=== PATIENT | female | born 1975 | race Caucasian/White ===

== ENCOUNTER 2020-07-10 08:13 | Day surgery (SDC) | payer OTHER ==
[~2020-07-10] VITALS: Ht 175.3 cm; Wt 129.7 kg
[~2020-07-10 08:13] MED LIST: CELEBREX100 MG PO; GLUCOPHAGE1000 MG PO; OMEPRAZOLE20 MG PO; PRAVACHOL40 MG PO
[2020-07-10] MEDS ORDERED: VICTOZA 2-0.6 MG/0.1 SUB-Q (08:31)
[2020-07-10] MEDS ORDERED: OB COMPLETE WI1 EACH PO (08:32)
--- NOTE | 2020-07-10 10:40 | NUR ---
07/10/20 1040 Rashmi Begum 1034-PATIENT ARRIVED TO PACU ON 2L NC AWAKE DROWSY RR EVEN LAYING LEFT LATERAL. ABDOMEN SOFT. ENCOURAGED TO PASS GAS. IVF INFUSING. HOB ELEVATED. DENIES PAIN OR NAUSEA. DOZES BACK TO SLEEP. 1039-GLUCOSE CHECKED 128. PATIENT SLEEPING 2L NC RR EVEN
--- NOTE | 2020-07-10 18:33 | OR ---
[facility] [address] [place], [place] [address] Signed DATE OF OPERATION: 07/10/2020 SURGEON: Julito Paz MD PREOPERATIVE DIAGNOSES: 1. Gastroesophageal reflux disease. 2. Hiatal hernia. 3. Possible gastric ulcer. 4. Intermittent diarrhea. 5. Mother with colonic polyps in her 50s. 6. Maternal aunt with colon cancer in her 50s. 7. Maternal great grandmother with colon cancer in her late 60s. POSTOPERATIVE DIAGNOSES: 1. Hiatal hernia/patulous GE junction (38 cm). 2. Sigmoid diverticulum x1. PROCEDURES: 1. EGD with CLOtest and biopsies of the duodenum, antrum and GE junction. 2. Colonoscopy with random cold biopsies. ESTIMATED BLOOD LOSS: None. INDICATIONS: Devora is a 45-year-old obese diabetic female, who was asked to see me for upper and lower endoscopy. She has a family history of colon cancer and polyps as listed above. In addition, she has had some trouble with acid reflux clear back to when she was a teenager. She also mentioned intermittent diarrhea. Her recent upper GI showed what is probably a tiny hiatal hernia with acid reflux and then may be an ulcer as well. The ulcer seemed to be quite small. She was changed from Zantac to Prilosec and it really made no difference. As a result, she was asked to see me for both upper and lower endoscopy. I met with Devora in the office. I gave her pamphlets on both upper and lower endoscopy. She understands the nature of the two tests along with the risks including, but not limited to gas, bloating, crampy abdominal pain, bleeding, perforation requiring surgery, and missed diagnosis. She also understands the need for IV conscious sedation. She had expressed understanding and wished to proceed. PROCEDURE NOTE: Devora was taken into our endoscopy suite and placed in the supine semi-recumbent Electronically Signed By: JULITO PAZ MD 07/10/20 1833 PATIENT NAME: DEVORA DOUGLAS OPERATIVE REPORT DATE OF : 71 REPORT #: [id number] PHYSICIAN: JULITO PAZ MD PCP: REGINA SERRANO MD REPORT IS CONFIDENTIAL AND NOT TO BE RELEASED WITHOUT AUTHORIZATION [facility] [address] [place], [place] [address] Signed position. The posterior oropharynx was anesthetized with lidocaine spray. A bite block was utilized for the case. She took a total of 11 mg of Versed and 125 mcg of fentanyl to cover both cases. The adult gastroscope had been introduced and advanced under direct visualization of camera out into the third portion of the duodenum without difficulty. The duodenum appeared in the pyloric channel. Healthy. We took a biopsy out of the duodenum because of the history of intermittent diarrhea. We looked and saw no ulcerations in the pyloric bulb or the stomach itself. We did take a biopsy of the antrum for CLOtest as well as pathologic review. Upon retroflexion of the scope, she has more or less a patulous GE junction. Not a true hiatal hernia. We withdrew the scope back through the area of GE junction, which was compliant without stricture. There was no gastric or esophageal varices. Just very minimal disruption to the Z-line. We took a biopsy along the edge of the Z-line for pathologic review. The GE junction measured out about 38 cm which is appropriate given Devora's height and weight. The distal middle and upper esophagus were unremarkable. After this, the gas was suctioned out and gastroscope removed. Devora tolerated the procedure quite well. Devora was rotated into the left lateral decubitus position. She was maintained on IV sedation with Versed and fentanyl. A digital rectal exam was performed and this was unremarkable. The adult colonoscope was introduced and advanced under direct visualization of the camera. It took a little extra sedation and abdominal compression in order to remove the scope up into the cecum. She had just a bit of liquid bilious stool. I could not quite suction irrigate out completely, right behind the ileocecal valve. Otherwise no findings. Her prep had a few areas of liquid particulate stool matter which was irrigated and suctioned out. The scope was then slowly withdrawn. We saw just a single diverticulum in her sigmoid colon. It was moderate in diameter and a bit shallow. We saw no inflammatory changes throughout the entire colon. We did take several random colon biopsies because of the history of diarrhea. The rectum itself was unremarkable. Upon retroflexion of the scope, there was no additional pathology noted above the anal canal. After this, the gas was suctioned out and the colonoscope removed. Devora tolerated the procedure quite well. RECOMMENDATIONS: I will see Devora back in my office in 7 to 14 days to review her results. Because of her family history, she will need a colonoscopy every 5 years. Julito Paz MD ALB/MODL Electronically Signed By: JULITO PAZ MD 07/10/20 1833 PATIENT NAME: DEVORA DOUGLAS OPERATIVE REPORT DATE OF : 71 REPORT #: [id number] PHYSICIAN: JULITO PAZ MD PCP: REGINA SERRANO MD REPORT IS CONFIDENTIAL AND NOT TO BE RELEASED WITHOUT AUTHORIZATION [address] [place] [address] Signed /[id number] cc: Regina Serrano MD Copies: ~ Electronically Signed By: JULITO PAZ MD 07/10/20 1833 PATIENT NAME: DEVORA DOUGLAS OPERATIVE REPORT DATE OF : 71 REPORT #: [id number] PHYSICIAN: JULITO PAZ MD PCP: REGINA SERRANO MD REPORT IS CONFIDENTIAL AND NOT TO BE RELEASED WITHOUT AUTHORIZATION
--- NOTE | 2020-07-11 10:47 | PATH ---
[facility] [address] [place], [place] [address] Signed SPECIMEN(S): A DUODENUM SPECIMEN(S): B ANTRUM/PYLORUS SPECIMEN(S): C GE JUNCTION SPECIMEN(S): D COLON BIOPSY SPECIMEN SOURCE: A. DUODENUM B. ANTRUM/PYLORUS C. GE JUNCTION D. COLON BIOPSY CLINICAL HISTORY: GERD, diarrhea. Esophagogastroduodenoscopy, colonoscopy. MICROSCOPIC DESCRIPTION: Histologic sections of all submitted blocks are examined by light microscopy. These findings, together with the gross examination, support the pathologic diagnosis. FINAL PATHOLOGIC DIAGNOSIS: A. Duodenum, biopsy: - Duodenal mucosa with no histopathologic abnormality. - Negative for increased intraepithelial lymphocytes. - Negative for dysplasia or malignancy. B. Stomach, antrum/pylorus, biopsy: - Antral mucosa with reactive gastropathy. - Negative for Helicobacter organisms on HE stain. - Negative for dysplasia or malignancy. C. Gastroesophageal junction, biopsy: - Squamocolumnar junctional mucosa with minimal chronic inflammation and reactive changes, suggestive of mild reflux esophagitis. - Negative for intestinal metaplasia, dysplasia, or malignancy. D. Colon, biopsy: - Fragments of colonic mucosa with no histopathologic abnormality. - Negative for active, chronic, or microscopic colitis. - Negative for dysplasia or malignancy. NAL:cml:C2NR GROSS DESCRIPTION: Four specimens are received in four containers, labeled "SB." A. The specimen, labeled "SB," and designated on the requisition "duodenum biopsy," is received in formalin and consists of one fragment of pink-alonso PATIENT NAME: MIGUELITO DOUGLAS PATHOLOGY DATE OF : 71 REPORT #: [id number] PHYSICIAN: MARCELINO PATHOLOGY PCP: PAUL SERRANO MD REPORT IS CONFIDENTIAL AND NOT TO BE RELEASED WITHOUT AUTHORIZATION [facility] [address] [place], [place] [address] Signed tissue (0.3 x 0.2 x 0.2 cm). The specimen is submitted entirely in cassette (A1). B. The specimen, labeled "SB," and designated on the requisition "antrum/pylorus biopsy," is received in formalin and consists of one fragment pink-alonso tissue (0.3 x 0.2 x 0.2 cm). The specimen is submitted entirely in cassette (B1). C. The specimen, labeled "SB," and designated on the requisition "GE junction biopsy," is received in formalin and consists of one fragment of white-alonso tissue (0.4 x 0.3 x 0.3 cm). The specimen is submitted entirely in cassette (C1) D. The specimen, labeled "SB," and designated on the requisition "colon biopsy," is received in formalin and consists of three fragments of pink-alonso tissue (0.7 x 0.4 x 0.3 cm in aggregate). The specimen is submitted entirely in cassette (D1). AC (under the direct supervision of a pathologist) The Gross Description was prepared using a voice recognition system. The report was reviewed for accuracy; however, sound-alike word errors, addition and/or deletions may occur. If there is any question about this report, please contact Client Services. PERFORMING LABORATORY: The technical component was performed by [employer], [address] [place] [address] (Paradichlorobenzene Machine Operator: Samantha Nam MD; CLIA# [id number]). Professional interpretation was performed by [employer], [facility], [address] [address] (CLIA# [id number]). Diagnostician: Emma Nowak MD Pathologist Electronically Signed 07/11/2020 Copies: ~ PATIENT NAME: MIGUELITO DOUGLAS PATHOLOGY DATE OF : 71 REPORT #: [id number] PHYSICIAN: MARCELINO PATHOLOGY PCP: PAUL SERRANO MD REPORT IS CONFIDENTIAL AND NOT TO BE RELEASED WITHOUT AUTHORIZATION
== END 2020-07-10 11:30 | disposition home or self-care (01) ==
LOC: OPS 08:13 → DS 08:13 → OPS 09:45
PROVIDERS: Colon & Rectal Surgery
PROC: 0DB48ZX Excision of Esophagogastric Junction, Via Natural or Artificial Opening Endoscopic, Diagnostic (ICD-10-PCS; 2020-07-10)
PROC: 0DBE8ZX Excision of Large Intestine, Via Natural or Artificial Opening Endoscopic, Diagnostic (ICD-10-PCS; 2020-07-10)
PROC: 0DB98ZX Excision of Duodenum, Via Natural or Artificial Opening Endoscopic, Diagnostic (ICD-10-PCS; principal; 2020-07-10 09:45)
PROC: 0DB78ZX Excision of Stomach, Pylorus, Via Natural or Artificial Opening Endoscopic, Diagnostic (ICD-10-PCS; 2020-07-10 09:45)
DX: K57.30 Diverticulosis of large intestine without perforation or abscess without bleeding (principal); K20.9 Esophagitis, unspecified; K44.9 Diaphragmatic hernia without obstruction or gangrene; K21.9 Gastro-esophageal reflux disease without esophagitis; E11.9 Type 2 diabetes mellitus without complications; Z80.0 Family history of malignant neoplasm of digestive organs; Z83.71 Family history of colonic polyps; Z79.899 Other long term (current) drug therapy; Z88.8 Allergy status to other drugs, medicaments and biological substances; Z88.0 Allergy status to penicillin; Z88.2 Allergy status to sulfonamides
CPT/HCPCS: 84703; 86677; 99153; G0500; J2250; J3010; J7121

== ENCOUNTER 2020-09-11 11:12 | Emergency (ER) | payer OTHER ==
[~2020-09-11] VITALS: Ht 175.3 cm; Wt 129.7 kg
--- OUTSIDE RECORDS SUMMARY | ~2020-09-11 | XMS | Encounter Summary ---
Demographics + + + | Address | [address] | | | [place] [address] | + + + | Home Phone | | + + + | Preferred Language | Unknown | + + + | Marital Status | | + + + | Jew Affiliation | NON | + + + | Race | White | + + + | Ethnic Group | Not or | + + + Author + + + | Author | [facility] | + + + | Organization | [facility] | + + + | Address | Unknown | + + + | Phone | Unavailable | + + + Support + + + + + | Name | Relationship | Address | Phone | + + + + + | Tori Braxton | ECON | [address] | | | [place] | | [place] [address] | | + + + + + | Nikole Partida | ECON | [address] | | | | | [place] | | | | | [address] | | + + + + + Care Team Providers + +------+ + | Care Plush Dresser Name | Role | Phone | + +------+ + | Vinny Lorenzana PA-C | PCP | | + +------+ + Encounter Details +--------+ + + + + | Date | Type | Department | Care Team | Description | +--------+ + + + + | 08/09/ | Document-Sc | [facility] | Madi Kessler MD | | | 2018 | anned | Sports Medicine & | 7 [facility] | | | | | Orthopaedic Surgery | Reginaldo JAME[place]HEL[place], | | | | | [address] | [place] [address] | | | | | [place], [place] | [phone] | | | | | [address] | | | | | | [phone] | | | +--------+ + + + + Social History + +-------+ +--------+------+ | Tobacco Use | Types | Packs/Day | Years | Date | | | | | Used | | + +-------+ +--------+------+ | Never Smoker | | | | | + +-------+ +--------+------+ + +---+---+---+ | Smokeless Tobacco: | | | | | Never Used | | | | + +---+---+---+ + + + | Sex Assigned at | Date Recorded | | | | + + + | Not on file | | + + + documented as of this encounter Plan of Treatment Not on filedocumented as of this encounter Visit Diagnoses Not on filedocumented in this encounter"
--- OUTSIDE RECORDS SUMMARY | ~2020-09-11 | XMS | Encounter Summary ---
Demographics + + + | Address | [address] | | | [place] [address] | + + + | Home Phone | | + + + | Preferred Language | Unknown | + + + | Marital Status | | + + + | Holiness Affiliation | NON | + + + | Race | White | + + + | Ethnic Group | Not or | + + + Author + + + | Author | [facility] | + + + | Organization | [facility] | + + + | Address | Unknown | + + + | Phone | Unavailable | + + + Support + + + + + | Name | Relationship | Address | Phone | + + + + + | Tori Braxton | ECON | [address] | | | [place] | | [place] [address] | | + + + + + | Nikole Partida | ECON | [address] | | | | | [place] | | | | | [address] | | + + + + + Care Team Providers + +------+ + | Care Volunteer Fire Fighter Name | Role | Phone | + +------+ + | Vinny Lorenzana PA-C | PCP | | + +------+ + Reason for Visit + + + | Reason | Comments | + + + | Trigger Thumb | left thumb | + + + Consultation (Routine) + +--------+ + + + + | Status | Reason | Specialty | Diagnoses / | Referred By | Referred To | | | | | Procedures | Contact | Contact | + +--------+ + + + + | Authorized | | Orthopedics | Diagnoses | [place], | [place], | | | | | Trigger | Vinny Rendon, | Ramu Padilla MD 7 | | | | | thumb, left | PA-C [address] | | | | | thumb | [address] | Drive | | | | | | [place], | [place], | | | | | | [place] [address] | [place] [address] | | | | | | Phone: | Phone: | | | | | | [phone] | [phone] | | | | | | Fax: | Fax: | | | | | | [phone] | [phone] | + +--------+ + + + + Encounter Details +--------+---------+ + + + | Date | Type | Department | Care Team | Description | +--------+---------+ + + + | 05/10/ | Office | [facility] | Ramu Alegria MD | Trigger thumb of | | 2018 | Visit | Sports Medicine & | [address] [place] | left hand (Primary | | | | Orthopaedic Surgery | Drive [place], | Dx) | | | | [address] | [place] [address] | | | | | [place], [place] | [phone] | | | | | [address] | | | | | | [phone] | | | +--------+---------+ + + + Social History + +-------+ [...] + + documented as of this encounter Patient Instructions Patient Instructions Kirill Weaver - 05/10/2018 4:15 PM PDTMonitor symptoms Follow up as needed for recurrent symptomsElectronically signed by Kirill Weaver at 04/30 4:36 PM PDT documented in this encounter Progress Notes Ramu Alegria MD - 05/10/2018 4:15 PM PDT Chief Complaint: Left hand pain HPI: Devora [place] is a 42 y.o. Diabetic female from [facility] who presents to the office today for evaluation of left hand trigger thumb. She reports pain at the volar base of the left t humb. The patient reports locking and catching in her left thumb. She has had symptoms for s mor November 2016. She was treated with an additional injection in November. She had good r elief for symptoms for nearly 5 months. Her symptoms return. She was given repeat cortison e injection on 04/28/18. She reports good improvement in her catching and locking symptoms f ollowing the injection. She has some mild pain over the A1 janak region of her left thumb. Overall she is much better and has minimal symptoms. Due to reoccurring symptoms he is refe rred office for orthopedic follow-up discuss long-term treatment. She is referred to the office today for orthopedic evaluation by Vinny Lorenzana. Current pain is 1/10 and is characterized as dull, stabbing, aching and intermittent. Symp toms are improving. The pain does not wake the patient at night. It is associated with swe lling. 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 She is using no medications for the pain. Past Medical and Surgical History: Reviewed per patient intake form. Past Medical History: Diagnosis Date Diabetes mellitus (HCC) High cholesterol History reviewed. No pertinent past surgical history. Current Outpatient Prescriptions Medication atorvastatin 5 mg oral tablet insulin glargine 100 unit/mL subcutaneous solution metFORMIN 1,000 mg oral tablet No current facility-administered medications for this visit. Allergies Allergen Reactions Cephalexin Hives Penicillin Hives Sulfa (Sulfonamide Antibiotics) Hives Family History Problem Relation Cancer Other Heart Disease Other Social history: Occupation: No occupation listed. She reports that she has never smoked. She has never used smokeless tobacco. She has no alcohol history on file. She has no drug history on file. Review of Systems: Completed and reviewed with patient per patient intake form. Pertinent positives noted in HPI. See scanned document in media section for reference. No general, systemic or constitu tional issues. Denies chest pain or shortness of breath. Denies fever or chills. No skin a brasions / lesions except as noted. Physical Exam: There were no vitals taken for this visit. General/Constitutional: Well developed, well nourished female, alert and oriented, and in no acute distress. Left hand Inspection: No swelling, no deformity. Palpation: Minimal tenderness on palpation over A1 janak, no palpable triggering Range of motion: Full range of motion Strength: Normal Stability: Normal Contralateral hand Inspection: No swelling. Palpation: Mild nodule A1 janak thumb Range of motion: Full range of motion. Strength: Normal strength. Assessment: Left hand trigger thumb Diabetes mellitus Plan: The patient's clinical history and physical exam are consistent with left hand trigger giselle turcios. I reviewed the natural history of this disorder with the patient and have outlined yamini tment options. Her symptoms have improved following her recent cortisone injection. She ma y continue activities as tolerated. Trigger fingers her common in diabetics. If she contin ues have recurrent symptoms will recommend a trigger thumb release. I will see her back in the office as needed for recurrent symptoms. Follow up: reginald Alegria MD [facility] Clinical Change Booth Attendant Board Certified Orthopaedic Surgeon Fellowship Trained in Sports Medicine and Arthroscopic Surgery Specializing in Knee and Shoulder Surgery [facility] [address] [place] [address] [place] [address] Office: [phone] [email or web address] documented in this enc ounter Plan of Treatment Not on filedocumented as of this encounter Procedures + +--------+ + + + | Procedure Name | Priori | Date/Time | Associated Diagnosis | Comments | | | ty | | | | + +--------+ + + + | X-RAY HAND 3 VIEWS | Routin | 05/10/2018 | Trigger thumb of | Results for this | | LEFT | e | 4:06 PM | left hand | procedure are in the | | | | PDT | | results section. | + +--------+ + + + documented in this encounter Results X-RAY HAND 3 VIEWS LEFT (05/10/2018 4:06 PM PDT) + + | Specimen | + + | | + + + + + | Narrative | Performed At | + + + | [address] [place] [address] | [facility] | | [place] [address] | DEPARTMENT | | [phone] Name: DEVORA DOUGLAS Phys: | RADIOLOGY | | RAMU ALEGRIA : 1975 Sex: F CSN: | | | [id number] MR# [id number] Exam Date: 05/10/2018 | | | EXAM: X-RAY HAND 3 VIEWS LEFT [id number] CLINICAL HISTORY: Left | | | hand pain. COMPARISON: None available. TECHNIQUE: Frontal, | | | lateral, and oblique views. FINDINGS: Bones: No acute fracture | | | or destructive osseous lesion. Bone mineralization is normal. | | | Joints: No acute dislocation. No significant degenerative changes. | | | Soft tissues: No radiopaque foreign body or soft tissue | | | calcification. IMPRESSION: No acute osseous process. | | | REPORT SIGNED IN OTHER VENDOR SYSTEM 05/10/2018 Reported by: | | | Christiano Beasley MD Electronically signed by: Christiano Beasley MD | | | Transcribed Date/Time: 05/10/2018 16:20 Wood Floor Refinisher: FLUENCY | | | | | + + + + + | Procedure Note | + + | Interface, Radiology Results - 05/10/2018 4:24 PM PDT [address] | | [address] [place] [address] | | Name: DEVORA DOUGLAS Phys: RAMU ALEGRIA : 1975 Sex: F | | CSN: [id number] MR# [id number] Exam Date: 05/10/2018 EXAM:X-RAY HAND 3 VIEWS | | LEFT [id number] CLINICAL HISTORY:Left hand pain. COMPARISON:None available. | | TECHNIQUE:Frontal, lateral, and oblique views. FINDINGS:Bones: No acute fracture or | | destructive osseous lesion. Bonemineralization is normal. Joints: No acute | | dislocation. No significant degenerative changes. Soft tissues: No radiopaque foreign | | body or soft tissuecalcification. IMPRESSION:No acute osseous process. REPORT SIGNED | | IN OTHER VENDOR SYSTEM 05/10/2018 Reported by: Christiano Beasley MD Electronically signed | | by: Christiano Beasley MD Transcribed Date/Time: 05/10/2018 16:20Transcriptionist: FLUENCY | | | |EXAM: | |X-RAY HAND 3 VIEWS LEFT [id number] | | | |CLINICAL HISTORY: | |Left hand pain. | | | |COMPARISON: | |None available. | | | |TECHNIQUE: | |Frontal, lateral, and oblique views. | | | |FINDINGS: | |Bones: No acute fracture or destructive osseous lesion. Bone | |mineralization is normal. | | | |Joints: No acute dislocation. No significant degenerative changes. | | | |Soft tissues: No radiopaque foreign body or soft tissue | |calcification. | | | |IMPRESSION: | |No acute osseous process. | | | | | | REPORT SIGNED IN OTHER VENDOR SYSTEM 05/10/2018 | |Reported by: Christiano Beasley MD | | | |Electronically signed by: Christiano Beasley MD | | | |Transcribed Date/Time: 05/10/2018 16:20 | |Wood Floor Refinisher: FLUENCY | | | | | | | + + + +---------+ + + | Performing | Address | City/State/Zipcode | Phone Number | | Organization | | | | + +---------+ + + | [facility] | | | | | [facility]IOLOGY | | | | + +---------+ + + documented in this encounter Visit Diagnoses + + | Diagnosis | + + | Trigger thumb of left hand - Primary Trigger finger (acquired) | + + documented in this encounter"
--- OUTSIDE RECORDS SUMMARY | ~2020-09-11 | XMS | Encounter Summary ---
Demographics + + + | Address | [address] | | | [place] [address] | + + + | Home Phone | | + + + | Preferred Language | Unknown | + + + | Marital Status | | + + + | Cheondoism Affiliation | NON | + + + | Race | White | + + + | Ethnic Group | Not or | + + + Author + + + | Author | [facility] | + + + | Organization | [facility] | + + + | Address | Unknown | + + + | Phone | Unavailable | + + + Support + + + + + | Name | Relationship | Address | Phone | + + + + + | Tori Braxton | ECON | [address] | | | [place] | | [place] [address] | | + + + + + | Nikole Partida | ECON | [address] | | | | | [place] | | | | | [address] | | + + + + + Care Team Providers + +------+ + | Care Inspector Watch Assembly Name | Role | Phone | + +------+ + | Vinny Lorenzana PA-C | PCP | | + +------+ + Encounter Details +--------+ + + + + | Date | Type | Department | Care Team | Description | +--------+ + + + + | 10/06/ | Procedure | [facility] | | | | 2017 | Pass | [facility] [address] | | | | | | [place], [place] | | | | | | [address] | | | +--------+ + + + [...] | | | + +---+---+---+ + + +---------+ + | Alcohol Use | Drinks/Week | oz/Week | Comments | + + +---------+ + | Yes | | | very rarely, 1-2 x | | | | | per year,. | + + +---------+ + + + + | Sex Assigned at | Date Recorded | | | | + + + | Not on file | | + + + documented as of this encounter Plan of Treatment Not on filedocumented as of this encounter Visit Diagnoses Not on filedocumented in this encounter"
--- OUTSIDE RECORDS SUMMARY | ~2020-09-11 | XMS | Encounter Summary ---
Demographics + + + | Address | [address] | | | [place] [address] | + + + | Home Phone | | + + + | Preferred Language | Unknown | + + + | Marital Status | | + + + | Hinduism Affiliation | NON | + + + | Race | White | + + + | Ethnic Group | Not or | + + + Author + + + | Author | [facility] | + + + | Organization | [facility] | + + + | Address | Unknown | + + + | Phone | Unavailable | + + + Support + + + + + | Name | Relationship | Address | Phone | + + + + + | Tori Braxton | ECON | [address] | | | [place] | | [place] [address] | | + + + + + | Nikole Partida | ECON | [address] | | | | | [place] | | | | | [address] | | + + + + + Care Team Providers + +------+ + | Care Gaming Manager Name | Role | Phone | + +------+ + | Vinny Lorenzana PA-C | PCP | | + +------+ + Reason for Visit +---------+--------+ + | Reason | Onset | Comments | | | Date | | +---------+--------+ + | Surgery | 08/24/ | Surgery Confirmation 08/25/18 [facility] | | | 2017 | | +---------+--------+ + Encounter Details +--------+ + + + + | Date | Type | Department | Care Team | Description | +--------+ + + + + | 08/24/ | Telephone | [facility] | Madi Kessler MD | Surgery (Surgery | | 2018 | | Sports Medicine & | [address] | Confirmation 08/25/18 | | | | Orthopaedic Surgery | Reginaldo KLEIN, | [facility] ) | | | | [address] | [place] [address] | | | | | [place] | [phone] | | | | | [address] | | | | | | [phone] | | | +--------+ + + + [...] + + documented as of this encounter Miscellaneous Notes Telephone Encounter - Lisset Luis - 08/24/2018 3:00 PM PDTConfirmed surgery for 6 :15am on 08/25/18. Also reminded patient to stop at the lab prior to heading [facility] to [facility]. elephone Enc deni - Lisset Luis - 08/24/2018 2:01 PM PDTLVM for patient to call me back cora arrieta her check in time for tomorrows surgery with . Confirm surgery check in for 6:15am on 08/25/18. Reminded NPO after midnight prior to surger y. documented in this e ncounter Plan of Treatment Not on filedocumented as of this encounter Visit Diagnoses Not on filedocumented in this encounter"
--- OUTSIDE RECORDS SUMMARY | ~2020-09-11 | XMS | Encounter Summary ---
Demographics + + + | Address | [address] | | | [place] [address] | + + + | Home Phone | | + + + | Preferred Language | Unknown | + + + | Marital Status | | + + + | Moravian Affiliation | NON | + + + | Race | White | + + + | Ethnic Group | Not or | + + + Author + + + | Author | [facility] | + + + | Organization | [facility] | + + + | Address | Unknown | + + + | Phone | Unavailable | + + + Support + + + + + | Name | Relationship | Address | Phone | + + + + + | Tori Braxton | ECON | [address] | | | [place] | | [place] [address] | | + + + + + | Nikole Partida | ECON | [address] | | | | | [place] | | | | | [address] | | + + + + + Care Team Providers + +------+ + | Care Concierge Name | Role | Phone | + +------+ + | Vinny Lorenzana PA-C | PCP | | + +------+ + Reason for Visit +---------+ + | Reason | Comments | +---------+ + | Post Op | TFR, right thumb | +---------+ + Encounter Details +--------+---------+ + + + | Date | Type | Department | Care Team | Description | +--------+---------+ + + + | 09/07/ | Office | [facility] | Princess Kellogg, | Trigger thumb of | | 2018 | Visit | Sports Medicine & | [facility] [address] | left hand (Primary | | | | Orthopaedic Surgery | [place] | Dx); Surgery | | | | [address] | [address] | follow-up; Trigger | | | | [place] | [phone] | thumb of right hand | | | | [address] | | | | | | [phone] | | | +--------+---------+ + + + [...] + + documented as of this encounter Last Filed Vital Signs + + + + + | Vital Sign | Reading | Time Taken | Comments | + + + + + | Blood Pressure | 118/82 | 09/07/2018 1:55 PM | | | | | PDT | | + + + + + | Pulse | 103 | 09/07/2018 1:55 PM | | | | | PDT | | + + + + + | Temperature | - | - | | + + + + + | Respiratory Rate | - | - | | + + + + + | Oxygen Saturation | 97% | 09/07/2018 1:55 PM | | | | | PDT | | + + + + + | Inhaled Oxygen | - | - | | | Concentration | | | | + + + + + | Weight | 123.4 kg (272 lb) | 09/07/2018 1:55 PM | | | | | PDT | | + + + + + | Height | 175.3 cm (5' 9") | 09/07/2018 1:55 PM | | | | | PDT | | + + + + + | Body Mass Index | 40.17 | 09/07/2018 1:55 PM | | | | | PDT | | + + + + + documented in this encounter Patient Instructions Patient Instructions Princess Kellogg PA-C - 09/07/2018 2:15 PM PDTActivity as tolerated Follow up 6 weeks Will schedule left thumb surgery: Plan surgery as scheduled. Please make sure your pre-op interview with the hospital is completed. We will call you the day before surgery to confirm your surgery time. No food or drink after midnight before surgery. Follow up at post-op appointment as scheduled in your surgery packet. documented in this encounter Progress Notes Sameer Mauri Tammy - 09/07/2018 2:15 PM PDTChief Complaint: S/P Right thumb trigger finger release HPI: Devora De Leon is a 43 y.o. female from [place] who returns to the office today for p ost op. The patient underwent a right thumb trigger finger release on 08/25/18. The patient is doing well following surgery. She reports her pain is well controlled. She returns to [facility] office for a routine postoperative visit and suture removal. Current pain is 0/10. Denies swelling, numbness, and tingling. She is using no medications for the pain. She does complain of left thumb pain. She reports a nodule over the base of left thumb. Bobo pedraza has had 2 previous trigger thumb injections which have provided relief for short period ti me. She denies any locking or catching of the thumb. She has taken ibuprofen in the past for pain. Review of Systems: Completed and reviewed with patient per patient intake form. Pertinent positives noted in HPI. See scanned document in media section for reference. No general, systemic or constitu tional issues. Denies chest pain or shortness of breath. Denies fever or chills. No skin a brasions / lesions except as noted. Physical Exam: BP 118/82 HR103 SPO2:97% General: AAOx3, cooperative with exam . HEENT: Nonicteric. Cardiac: Regular rate and rhythm, no murmurs or gallops appreciated. Chest: Clear. Abd: Soft, non tender. Skin: Intact over surgical site without erythema or lesions. Right hand Inspection: Wound clean, dry, intact. No signs of infection. Minimal swelling. Palpation: Mild tenderness over incision site Range of motion: full range of motion Strength: normal Sensation: Intact to light touch Left hand: Inspection: No swelling noted Palpation: Tender A1 janak of thumb Range of motion: Full range Strength: Normal strength Assessment: Left trigger thumb Left thumb pain Status post Right thumb trigger finger release 08/25/18 Plan: In terms of the left thumb, I have recommended surgical intervention. I have ash lou the surgical procedure and have outlined the post op rehabilitation and a timeline for rec overy. She understands the risks and benefits of the procedure and wishes to proceed. She will be schedule for a left trigger thumb release on 10/06/18. The patient is doing well following surgery. She will begin post op wound care as angel lou. She may gradually advance her activities. I have reviewed post operative rehabilitation goals and time line for recovery. Follow up: Prn right hand, post op left hand Princess Kellogg PA-C [facility] Orthopaedic Physician Correctional Treatment Specialist [facility] [address] [place] [address] Office: [phone] documented in this e ncounter Plan of Treatment Not on filedocumented as of this encounter Visit Diagnoses + + | Diagnosis | + + | Trigger thumb of left hand - Primary Trigger finger (acquired) | + + | Surgery follow-up Follow-up examination, following unspecified surgery | + + | Trigger thumb of right hand Trigger finger (acquired) | + + documented in this encounter
--- OUTSIDE RECORDS SUMMARY | ~2020-09-11 | XMS | Encounter Summary ---
Demographics + + + | Address | [address] | | | [place] [address] | + + + | Home Phone | | + + + | Preferred Language | Unknown | + + + | Marital Status | | + + + | Catholic Affiliation | NON | + + + | Race | White | + + + | Ethnic Group | Not or | + + + Author + + + | Author | [facility] | + + + | Organization | [facility] | + + + | Address | Unknown | + + + | Phone | Unavailable | + + + Support + + + + + | Name | Relationship | Address | Phone | + + + + + | Tori Braxton | ECON | [address] | | | [place] | | [place] [address] | | + + + + + | Nikole Partida | ECON | [address] | | | | | [place] | | | | | [address] | | + + + + + Care Team Providers + +------+ + | Care Power Project Manager Name | Role | Phone | + +------+ + | Vinny Lorenzana PA-C | PCP | | + +------+ + Encounter Details +--------+ + + + + | Date | Type | Department | Care Team | Description | +--------+ + + + + | 09/07/ | Document-Sc | [facility] | Madi Kessler MD | | | 2018 | anned | Sports Medicine & | [facility] | | | | | Orthopaedic Surgery | Reginaldo [place], | | | | | [address] | [place] [address] | | | | | [place], [place] | [phone] | | | | | [address] | | | | | | [phone] | | | +--------+ + + + [...]
--- OUTSIDE RECORDS SUMMARY | ~2020-09-11 | XMS | Encounter Summary ---
Demographics + + + | Address | [address] | | | [place] [address] | + + + | Home Phone | | + + + | Preferred Language | Unknown | + + + | Marital Status | | + + + | Orthodoxy Affiliation | NON | + + + | Race | White | + + + | Ethnic Group | Not or | + + + Author + + + | Author | [facility] | + + + | Organization | [facility] | + + + | Address | Unknown | + + + | Phone | Unavailable | + + + Support + + + + + | Name | Relationship | Address | Phone | + + + + + | Tori Braxton | ECON | [address] | | | [place] | | [place] [address] | | + + + + + | Nikole Partida | ECON | [address] | | | | | [place] | | | | | [address] | | + + + + + Care Team Providers + +------+ + | Care Coppersmith Apprentice Name | Role | Phone | + +------+ + | Vinny Lorenzana PA-C | PCP | | + +------+ + Reason for Visit +---------+--------+ + | Reason | Onset | Comments | | | Date | | +---------+--------+ + | Post Op | 10/07/ | | | | 2017 | | +---------+--------+ + Encounter Details +--------+ + + + + | Date | Type | Department | Care Team | Description | +--------+ + + + + | 10/07/ | Telephone | Orthopedics at | Princess Kellogg, | Post Op | | 2018 | | [facility] [address] | [facility] [address] | | | | | [address] | [place], [place] | | | | | [place] | [address] | | | | | [address] | [phone] | | | | | [phone] | | | +--------+ + + + [...] this encounter Miscellaneous Notes Telephone Encounter - Princess Kellogg PA-C - 10/07/2018 12:35 PM PSTCalled pt to check in p ost op day 1. No answer, left message to call back if any questions or concerns. Electronica lly signed by Princess Kellogg PA-C at 10/07/2018 12:38 PM PSTdocumented in this encounter Plan of Treatment Not on filedocumented as of this encounter Visit Diagnoses Not on filedocumented in this encounter"
--- OUTSIDE RECORDS SUMMARY | ~2020-09-11 | XMS | Encounter Summary ---
Demographics + + + | Address | [address] | | | [place] [address] | + + + | Home Phone | | + + + | Preferred Language | Unknown | + + + | Marital Status | | + + + | Hinduism Affiliation | NON | + + + | Race | White | + + + | Ethnic Group | Not or | + + + Author + + + | Author | [facility] | + + + | Organization | [facility] | + + + | Address | Unknown | + + + | Phone | Unavailable | + + + Support + + + + + | Name | Relationship | Address | Phone | + + + + + | Tori Braxton | ECON | [address] | | | [place] | | [place] [address] | | + + + + + | Nikole Partida | ECON | [address] | | | | | [place] | | | | | [address] | | + + + + + Care Team Providers + +------+ + | Care Superintendent Of Schools Name | Role | Phone | + +------+ + | Vinny Lorenzana PA-C | PCP | | + +------+ + Encounter Details +--------+ + + + + | Date | Type | Department | Care Team | Description | +--------+ + + + + | 08/09/ | Hospital | [facility] | | | | 2018 | Encounter | Sports Medicine & | | | | | | Orthopaedic Surgery | | | | | | [address] | | | | | | [place] | | | | | | [address] | | | | | | [phone] | | | +--------+ + + + [...] + + documented as of this encounter Medications at Time of Discharge + + + +---------+ + + | Medication | Sig | Dispensed | Refills | Start | End Date | | | | | | Date | | + + + +---------+ + + | atorvastatin 5 mg | Take 5 mg by mouth | | 0 | | | | oral tablet | once daily at | | | | | | | bedtime. | | | | | + + + +---------+ + + | metFORMIN 1,000 mg | Take 1,000 mg by | | 0 | | | | oral tablet | mouth two times | | | | | | | daily. | | | | | + + + +---------+ + + | | Take 1-2 tablets by | 30 | 0 | 08/09/20 | | | oxyCODONE-acetaminop | mouth every four | tablet | | 18 | | | hen (PERCOCET) 5-325 | hours as needed. Not | | | | | | mg oral | to exceed 10 | | | | | | tabletIndications: | tablets per any 24 | | | | | | Trigger thumb of | hour period. | | | | | | right hand | | | | | | + + + +---------+ + + | PROMETHAZINE 25 mg | Take 1 tablet by | 10 | 1 | 08/09/20 | | | oral | mouth four times | tablet | | 18 | | | tabletIndications: | daily as needed for | | | | | | Trigger thumb of | nausea/vomiting for | | | | | | right hand | up to 10 doses. | | | | | + + + +---------+ + + documented as of this encounter Plan of Treatment Not on filedocumented as of this encounter Visit Diagnoses Not on filedocumented in this encounter"
--- OUTSIDE RECORDS SUMMARY | ~2020-09-11 | XMS | Encounter Summary ---
Demographics + + + | Address | [address] | | | [place] [address] | + + + | Home Phone | | + + + | Preferred Language | Unknown | + + + | Marital Status | | + + + | Sikh Affiliation | NON | + + + | Race | White | + + + | Ethnic Group | Not or | + + + Author + + + | Author | [facility] | + + + | Organization | [facility] | + + + | Address | Unknown | + + + | Phone | Unavailable | + + + Support + + + + + | Name | Relationship | Address | Phone | + + + + + | Tori Braxton | ECON | [address] | | | [place] | | [place] [address] | | + + + + + | Nikole Partida | ECON | [address] | | | | | [place] | | | | | [address] | | + + + + + Care Team Providers + +------+ + | Care Futures Trader Name | Role | Phone | + +------+ + | Vinny Lorenzana PA-C | PCP | | + +------+ + Reason for Visit Consult to [place] (Urgent) +--------+--------+ + + + + | Status | Reason | Specialty | Diagnoses / | Referred By | Referred To | | | | | Procedures | Contact | Contact | +--------+--------+ + + + + | Closed | | Orthopedics | Diagnoses | [place], | [place], | | | | | Trigger | Ramu Padilla MD | Ramu Padilla MD 7 | | | | | thumb, left | [address] | [address] | | | | | thumb | [address] | Drive | | | | | Procedures | | [place], | | | | | REQUEST TO | [place], | [place] [address] | | | | | SURGERY | [place] [address] | Phone: | | | | | ROLL CLAMP OPERATOR | Phone: | [phone] | | | | | [place] | [phone] | Fax: | | | | | FINGER | Fax: | [phone] | | | | | TENDON | [phone] | | | | | | [place] | | | +--------+--------+ + + + + Encounter Details +--------+---------+ + + + | Date | Type | Department | Care Team | Description | +--------+---------+ + + + | 10/06/ | Surgery | [place] | Ramu Alegria MD | LEFT TRIGGER THUMB | | 2018 | | [facility] [address] | [address] [facility] | RELEASE | | | | [address] [place], | | | | | [place] | [place] [address] | | | | | [phone] | [phone] | | | | | | | | +--------+---------+ + + + [...] + + + | Blood Pressure | 127/74 | 10/06/2018 11:28 AM | | | | | PST | | + + + + + | Pulse | 83 | 10/06/2018 11:28 AM | | | | | PST | | + + + + + | Temperature | 36.2 C (97.2 F) | 10/06/2018 11:28 AM | | | | | PST | | + + + + + | Respiratory Rate | 16 | 10/06/2018 11:28 AM | | | | | PST | | + + + + + | Oxygen Saturation | 99% | 10/06/2018 11:28 AM | | | | | PST | | + + + + + | Inhaled Oxygen | - | - | | | Concentration | | | | + + + + + | Weight | 121.3 kg (267 lb 6.7 | 10/06/2018 7:54 AM | | | | oz) | PST | | + + + + + | Height | 175.3 cm (5' 9") | 10/06/2018 7:54 AM | | | | | PST | | + + + + + | Body Mass Index | 39.49 | 10/06/2018 7:54 AM | | | | | PST | | + + + + + documented in this encounter Discharge Instructions Instructions Mercy Cheng RN - 10/06/2018POST SEDATION DISCHARGE INSTRUCTIONS The medications you have received today for your procedure will remain in your body for wild e time. You may experience dizziness, drowsiness, or lightheadedness. You sense of balance a nd fine muscle control may be affected. You reaction time will be slowed, making activities like driving dangerous. You may not recognize any of these changes. Therefore to assure a sa fe and complete recovery, we ask you to follow these strict instructions. 1. DO NOT DRIVE for 24 hours. 2. DO NOT USE potentially DANGEROUS appliances or equipment (stove, lawnmower, garbage disp osal, iron, etc.) 3. Be aware of DIZZINESS. Move slowly, taking you time. Sudden position changes can cause n ausea. 4. DO NOT MAKE Any IMPORTANT DECISIONS. You may change your mind tomorrow. 5. NO NOT DRINK ALCOHOLIC beverages for 24 hours. The combination of drugs and alcohol coul d be dangerous. 6. DISCUSS with your doctor and questions or concerns you may have. documented in this encounter Medications at Time of Discharge [...] + + + +---------+ + + | ibuprofen 200 mg | Take 200 mg by mouth | | 0 | | | | oral tablet | every six hours as | | | | | | | needed. | | | | | + + + +---------+ + + | liraglutide | Inject 1.8 mg under | | 0 | | | | (VICTOZA 3-RAPHAEL) 0.6 | the skin (SUBC) once | | | | | | mg/0.1 mL (18 mg/3 | daily. | | | | | | mL) subcutaneous pen | | | | | | | injector | | | | | | + + + +---------+ + + | metFORMIN 1,000 mg | Take 1,000 mg by | | 0 | | | | oral tablet | mouth two times | | | | | | | daily. | | | | | + + + +---------+ + + | | Take 1 tablet by | | 0 | | | | multivitamin-mineral | mouth once daily. | | | | | | s oral tablet | | | | | | + [...] + + + +---------+ + + | ranitidine 150 mg | Take 150 mg by mouth | | 0 | | | | oral tablet | two times daily. | | | | | + + + +---------+ + + documented as of this encounter Progress Notes Mercy Cheng RN - 10/06/2018 11:28 AM PSTEducated patient on CMS. Patient states under standing to instructions. Uneventful recovery, pain is well controlled. Patient states understanding to discharge ins tructions, all questions answered. documented in this en counter H&P Notes Ramu Alegria MD - 10/06/2018 9:10 AM PSTI have examined the patient and reviewed the Hi story and Physical and have confirmed that it is accurate and current. RAMU ALEGRIA MD amu Alegria MD - 1 12/06/2017 9:09 AM PST Chief Complaint: S/P Right thumb trigger finger release HPI: Devora De Leon is a 43 y.o. female from [place] who returns to the office today for p ost op. The patient underwent a right thumb trigger finger release on 08/25/18. The patient is doing well following surgery. She reports her pain is well controlled. She returns to [facility] office for a routine postoperative visit and suture removal. Current pain is 0/10. Denies swelling, numbness, and tingling. She is using no medications for the pain. She does complain of left thumb pain. She reports a nodule over the base of left thumb. e has had 2 previous trigger thumb injections [...] a brasions / lesions except as noted. Past Medical and Surgical History: Reviewed per patient intake form. Past Medical History: Diagnosis Date Diabetes mellitus (HCC) GERD (gastroesophageal reflux disease) High cholesterol Past Surgical History Procedure Laterality Date Bladder defect repair mimi reflux bladder repair at 1 yo Tubal ligation Shoulder surgery Bilateral 2007 rt 2010 lt Foot surgery Right 2007 tendon relase Rotator cuff repair Right Current Facility-Administered Medications Medication clindamycin (CLEOCIN) IV 900 mg IN D5W (RTU) lidocaine PF (XYLOCAINE MPF) 10 mg/mL (1 %) injection 2 mg NaCl flush 2-10 mL NaCl flush 2-10 mL scopolamine (TRANSDERM-SCOP) 1 mg over 3 days 1 patch sodium chloride 0.9 % (NS) IV infusion sodium chloride 0.9 % (NS) IV infusion Allergies Allergen Reactions Cephalexin Hives Penicillin Hives Sulfa (Sulfonamide Antibiotics) Hives Family History Problem Relation Cancer Other Heart Disease Other Social history: 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 She has never used smokeless tobacco. She reports that she drinks alcohol. She reports that she does not use drugs. Physical Exam: BP 119/72 | Pulse 92 | Temp 36.9 C (98.5 F) | RR 18 | Ht 1.753 m (5' 9") | Wt 121.3 kg (267 lb 6.7 oz) | SpO2 98% | BMI 39.49 kg/(m^2) General: AAOx3, cooperative with exam . HEENT: Nonicteric. Cardiac: Regular rate and rhythm, no murmurs or gallops appreciated. Chest: Clear. Abd: Soft, non tender. Skin: Intact over surgical site without erythema or lesions. Left hand: Inspection: No swelling noted Palpation: Tender A1 janak of thumb Range of motion: Full range Strength:Normal strength Assessment: Left trigger thumb Left thumb pain Status post Right thumb trigger finger release 08/25/18 Plan: In terms of the left thumb, I have recommended surgical intervention. I have reviewe d the surgical procedure and have outlined the post op rehabilitation and a timeline for rec overy. She understands the risks and benefits of the procedure and wishes to proceed. She will be schedule for a left trigger thumb release on 10/06/18. Follow up: post op left hand Princess Kellogg PA-C [facility] Orthopa[facility]ics and Rehabilitation Orthopaedic Physician Drum Carrier [facility] [address] [place] [id number] Office: [phone] documented in this enc ounter Procedure Notes Ramu Alegria MD - 10/06/2018 9:51 AM PSTAssociated Order(s): PROCEDURE NOTEORTHOPAEDIC OPERATIVE REPORT Date of Surgery: 10/06/2018 Attending Surgeon: Ramu Alegria M.D. Drum Carrier(s): KATHARINE Partida Preoperative Diagnosis(es): Left trgger thumb Postoperative Diagnosis(es): Same Procedures Performed: Left trigger thumb release Anesthesia: general Complications: None. Estimated Blood Loss: minimal Disposition: To the PACU, stable Brief Clinical Note and Indications: Devora De Leon is a 43 y.o. female patient presented with painful triggering of the l eft thumb. We discussed the relative risks and benefits of continued conservative management versus operative intervention, and the patient elected to proceed with surgery. The patient has undergone a previous right trigger thumb release. Procedure: The patient was brought to the operating room, transferred to the OR table, given monitored general anesthesia care without complications. A surgical pause was held to properly identi fy the patient, note that the surgical site was marked, and to verify that the planned proce dure was clearly indicated on the consent form. The trigger thumb was addressed at this point. Appropriate skin markings were made, and a 1 cm transverse incision was made at the volar MCP flexion crease of the thumb. Blunt dissec tion was carried through subcutaneous tissue, and the radial and ulnar neurovascular bundles to the thumb were identified and carefully protected. The annular janak was incised longit udinally with a 15 blade. The release was completed with tenotomy scissors. The flexor polli cis longus tendon was delivered through the wound to confirm complete release. There was a thin A1 janak. There were no masses or cysts. The wound was then irrigated and closed with 4-0 nylon. I local field block with marcaine was administered. A sterile dressing was applied after tourniquet deflation. The patient w as then returned to her hospital bed and transferred to the short-stay unit in stable condit ion. The patient tolerated the procedure well with no complications and minimal blood loss. Ramu Alegria M.D. [facility] Sports Medicine and Orthopaedic Surgery [address] [place] [id number] [email or web address] docume nted in this encounter Plan of Treatment Not on filedocumented as of this encounter Procedures + +--------+ + + + | Procedure Name | Priori | Date/Time | Associated Diagnosis | Comments | | | ty | | | | + +--------+ + + + | PROCEDURE NOTE | Routin | 10/06/2018 | | Results for this | | | e | 9:51 AM | | procedure are in the | | | | PST | | results section. | + +--------+ + + + | TRIGGER RELEASE | Electi | 10/06/2018 | Trigger thumb of | | | | ve | 9:32 AM | left hand [M65.312] | | | | Surgic | PST | | | | | al | | | | + +--------+ + + + | HECTOR DICKSONPOC | Routin | 10/06/2018 | | Results for this | | | e | 7:58 AM | | procedure are in the | | | | PST | | results section. | + +--------+ + + + documented in this encounter Results PROCEDURE NOTE (10/06/2018 9:51 AM PST) + + + | Narrative | Performed At | + + + | Ramu Alegria MD 10/06/2018 9:53 AM ORTHOPAEDIC OPERATIVE | | | REPORT Date of Surgery: 10/06/2018 Attending Surgeon: Ramu | | | José Miguel Alegria Drum Carrier(s): KATHARINE Partida Preoperative | | | Diagnosis(es): Left trgger thumb Postoperative Diagnosis(es): Same | | | Procedures Performed: Left trigger thumb release Anesthesia: | | | general Complications: None. Estimated Blood Loss: minimal | | | Disposition: To the PACU, stable Brief Clinical Note and | | | Indications: Devora De Leon is a 43 y.o. female patient | | | presented with painful triggering of the left thumb. We discussed | | | the relative risks and benefits of continued conservative management | | | versus operative intervention, and the patient elected to proceed | | | with surgery. The patient has undergone a previous right trigger | | | thumb release. Procedure: The patient was brought to the | | | operating room, transferred to the OR table, given monitored general | | | anesthesia care without complications. A surgical pause was held to | | | properly identify the patient, note that the surgical site was | | | marked, and to verify that the planned procedure was clearly | | | indicated on the consent form. The trigger thumb was addressed | | | at this point. Appropriate skin markings were made, and a 1 cm | | | transverse incision was made at the volar MCP flexion crease of the | | | thumb. Blunt dissection was carried through subcutaneous tissue, and | | | the radial and ulnar neurovascular bundles to the thumb were | | | identified and carefully protected. The annular janak was incised | | | longitudinally with a 15 blade. The release was completed with | | | tenotomy scissors. The flexor pollicis longus tendon was delivered | | | through the wound to confirm complete release. There was a thin | | | A1 janak. There were no masses or cysts. The wound was then | | | irrigated and closed with 4-0 nylon. I local field block with | | | marcaine was administered. A sterile dressing was applied after | | | tourniquet deflation. The patient was then returned to her hospital | | | bed and transferred to the short-stay unit in stable condition. The | | | patient tolerated the procedure well with no complications and | | | minimal blood loss. Ramu Alegria M.D. [facility] | | | Medicine and Orthopaedic Surgery [address] [place] [address] | | | [place] [address] | | + + + CAP GLU,POC (10/06/2018 7:58 AM PST) + +-------+ + + + | Component | Value | Ref Range | Performed | Pathologist | | | | | At | Signature | + +-------+ + + + | BLOOD | 112 | 70 - 105 mg/dL | [facility] | | | GLUCOSE, | | | OF CARE | | | POC | | | TESTING | | + +-------+ + + + + + | Specimen | + + | | + + + +---------+ + + | Performing | Address | City/State/Zipcode | Phone Number | | Organization | | | | + +---------+ + + | [facility] | | | | | TESTING | | | | + +---------+ + + documented in this encounter Visit Diagnoses Not on filedocumented in this encounter Administered Medications + +--------+ +------+------+ + | Medication Order | MAR | Action | Dose | Rate | Site | | | Action | Date | | | | + +--------+ +------+------+ + | bupivacaine | Given | 10/06/20 | 5 mL | | Surgical | | (MARCAINE,SENSORCAINE) 0.25 % | | 18 9:53 | | | Site | | (2.5 mg/mL) injection | | AM PST | | | | | INTRAPROCEDURE PRN, Starting Wed | | | | | | | 10/06/18 at 0953, Until Wed | | | | | | | 10/06/18 at 0959 | | | | | | + +--------+ +------+------+ + + +---+ | | | + +---+ | lidocaine PF (XYLOCAINE MPF) 10 | | | mg/mL (1 %) injection 2 mg 2 mg | | | (0.2 mL), infiltration, | | | PREPROCEDURE ONCE, 1 dose, | | | Starting Thu10/06/18 at 0806, | | | Until Thu10/06/18 at 1734 | | + +---+ | | | + +---+ + +-------+ + +---+ + | NaCl 0.9 % irrigation | Given | 10/06/20 | 1,000 mL | | Surgical | | INTRAPROCEDURE PRN, Starting Wed | | 18 9:28 | | | Site | | 10/06/18 at 0928, Until Wed | | AM PST | | | | | 10/06/18 at 0959 | | | | | | + +-------+ + +---+ + + +---+ | | | + +---+ | NaCl flush 2-10 mL 2-10 mL, | | | intravenous, TWICE DAILY, First | | | dose on Thu10/06/18 at 0900, | | | Until Discontinued | | + +---+ | | | + +---+ | NaCl flush 2-10 mL 2-10 mL, | | | intravenous, NEEDED, Starting | | | Thu10/06/18 at 0806, Until Wed | | | 10/06/18 at 1734, line patency per | | | policy | | + +---+ | | | + +---+ + + + +---------+---+ + | scopolamine (TRANSDERM-SCOP) 1 | Applied | 10/06/20 | 1 patch | | Left | | mg over 3 days 1 patch 1 patch, | Patch | 18 8:31 | | | Post | | transdermal, ONCE, 1 dose, Wed | | AM PST | | | Auricula | | 10/06/18 at 0900 | | | | | r | + + + +---------+---+ + + +---+ | | | + +---+ | scopolamine (TRANSDERM-SCOP) 1 | | | mg over 3 days 1 dose, Starting | | | 10/06/18 at 0829, Until Wed | | | 10/06/18 at 1734 | | + +---+ | | | + +---+ | sodium chloride 0.9 % (NS) IV | | | infusion 25-50 mL, intravenous, | | | NEEDED, Starting 10/06/18 | | | at 0806, Until 10/06/18 at | | | 1734, line patency per policy | | + +---+ | | | + +---+ | sodium chloride 0.9 % (NS) IV | | | infusion 10 mL/hr, intravenous, | | | PROCEDURE CONTINUOUS, Starting | | | 10/06/18 at 0815, Until Wed | | | 18 at 1734 | | + +---+ | | | + +---+ documented in this encounter
--- OUTSIDE RECORDS SUMMARY | ~2020-09-11 | XMS | Encounter Summary ---
Demographics + + + | Address | [address] | | | [place] [address] | + + + | Home Phone | | + + + | Preferred Language | Unknown | + + + | Marital Status | | + + + | Religion Affiliation | NON | + + + | Race | White | + + + | Ethnic Group | Not or | + + + Author + + + | Author | [facility] | + + + | Organization | [facility] | + + + | Address | Unknown | + + + | Phone | Unavailable | + + + Support + + + + + | Name | Relationship | Address | Phone | + + + + + | Tori Braxton | ECON | [address] | | | [place] | | [place] [address] | | + + + + + | Nikole Partida | ECON | [address] | | | | | [place] | | | | | [address] | | + + + + + Care Team Providers + +------+ + | Care Repairer Name | Role | Phone | + +------+ + | Vinny Lorenzana PA-C | PCP | | + +------+ + Encounter Details +--------+ + + + + | Date | Type | Department | Care Team | Description | +--------+ + + + + | 08/25/ | Anesthesia | [facility] | Renetta Tamayo, | | | 2018 | Event | [facility] [address] | | | | | [address] | [place], [place] | | | | | [place], [place] | [address] | | | | | [address] | [phone] | | | | | | | | | | | | Maris Gutiérrez RN | | | | | | [address] | | | | | | [place], [place] | | | | | | [address] | | +--------+ + + + + Anesthesia Record + + + + + | Procedure Name | Responsible | Anesthesia Start | Anesthesia Stop Time | | | Anesthesiologist | Time | | + + + + + | RIGHT TRIGGER THUMB | Renetta Tamayo MD | 08/25/18 0754 | 08/25/18 0832 | | RELEASE (Right Hand) | | | | + + + + + +----+---+ + + | Da | T | Event | Comment | | te | i | | | | | m | | | | | e | | | +----+---+ + + | 09 | 0 | Eq Check | Anesthesia machine checked Equipment verified | | /2 | 7 | | | | 6/ | 4 | | | | 20 | 5 | | | | 18 | | | | +----+---+ + + | | 0 | Pt. Check | Prior to anesthesia start, pt. Identified, examined, chart | | | 7 | | reviewed, PARQ held, anesthetic plan made or approved by | | | 4 | | attending anesthesiologist. NPO status confirmed as appropriate | | | 5 | | for procedure Preoperative evaluation: unchanged | +----+---+ + + | | 0 | An Start | | | | 7 | | | | | 5 | | | | | 4 | | | +----+---+ + + | | 0 | An Start | | | | 7 | Data | | | | 5 | | | | | 4 | | | +----+---+ + + | | 0 | Vitals | Monitors applied Vital signs checked Patient ready for anesthesia | | | 8 | Checked | | | | 0 | | | | | 0 | | | +----+---+ + + | | 0 | Std. Airway | | | | 8 | Mgt. | | | | 0 | | | | | 1 | | | +----+---+ + + | | 0 | Ready | | | | 8 | | | | | 0 | | | | | 3 | | | +----+---+ + + | | 0 | Abx | | | | 8 | Administere | | | | 0 | d | | | | 4 | | | +----+---+ + + | | 0 | An Tourn | 250mmHg, R upper arm | | | 8 | Inflated | | | | 1 | | | | | 3 | | | +----+---+ + + | | 0 | Incision | | | | 8 | | | | | 1 | | | | | 4 | | | +----+---+ + + | | 0 | An Tourn | | | | 8 | Deflated | | | | 2 | | | | | 1 | | | +----+---+ + + | | 0 | Surgery end | | | | 8 | | | | | 2 | | | | | 5 | | | +----+---+ + + | | 0 | an stop | | | | 8 | data | | | | 2 | | | | | 9 | | | +----+---+ + + | | 0 | Anesthesia | | | | 8 | End | | | | 3 | | | | | 2 | | | +----+---+ + + +------+ | Meds | +------+ + +---------+ | Name | Total | + +---------+ | clindamycin (CLEOCIN) IV 900 mg | 900 mg | | IN D5W (RTU) | | + +---------+ | lidocaine (XYLOCAINE MPF) | 4 mL | | injection 1% (10 mg/mL) | | + +---------+ | propofol IV | 200 mg | + +---------+ | fentaNYL inj | 50 mcg | + +---------+ | dexamethasone IV | 10 mg | + +---------+ | ketorolac inj | 30 mg | + +---------+ | ondansetron IV | 4 mg | + +---------+ | scopolamine patch | 1 patch | + +---------+ | lactated Ringers IV | 600 mL | + +---------+ + + | Name | + + | O2 FR Avance (Total Liters) | + + | Air FR Avance (l/min) | + + | Insp Sevo | + + | Et Sevo | + + | EtN2O % | + + | Insp N2O % | + + + + | No blood administrations on file. | + + +--------+ + + + | Type | Details | Placement | Removal | +--------+ + + + | Incisi | Right; thumb | 08/25/18 0812 by | | | on | | | | +--------+ + + + | Periph | 08/25/18; 0710; Left; Hand; 20 g; | 08/25/18 0710 by | 08/25/18 1006 by | | eral | Positive; 08/25/18; 1006 | Michelle Nicole, | Michelle Nicole, | | IV | | RN | RN | +--------+ + + + documented in this encounter Social History + +-------+ +--------+------+ | Tobacco [...] + + documented as of this encounter OR Notes Anesthesia Procedure Notes - Renetta Tamayo MD - 08/25/2018 8:09 AM PDTAssociated Orde r(s): ANE LMAProcedure Reason for Intubation: For surgical procedure, Location Performed: [place] , Patient was preoxyg enated Mask Ventilation Grade 0 - Ventilation by mask not attempted ETT SGA Atraumatic Placement: Yes LMA Type: Classic LMA Size: 4LMA Size: 4 LMA positive for Etco 2 Narrative Attending physically present nesthesia Postproc edure Evaluation - Renetta Tamayo MD - 08/25/2018 7:54 AM PDTFormatting of this note mi ght be different from the original. Devora Braxton [place] [phone] Allergies Allergen Reactions Cephalexin Hives Penicillin Hives Sulfa (Sulfonamide Antibiotics) Hives Past Surgical History Procedure Laterality Date Bladder defect repair modesto reflux bladder repair at 1 yo Tubal ligation Shoulder surgery Bilateral 2007 rt 2010 lt Foot surgery Right 2007 tendon relase Rotator cuff repair Right Temp: 36.8 C (98.3 F) Heart Rate: 107 Resp: 18 BP: 145/85 SpO2: 95 % Evaluation ROS including card, resp, Neuro, and GI w/o evidence of adverse effects, VS including tempe rature and hydration status are normal, Patient personally seen and evaluated for recovery f rom anesthesia care no Altered mental status Complications No adverse events Other: Pain and nausea adequately controlled. nesthesia Preproce dure Evaluation - Renetta Tamayo MD - 08/25/2018 7:52 AM PDTFormatting of this note carline ht be different from the original. Devora De Leon [phone] Allergies Allergen Reactions Cephalexin Hives Penicillin Hives Sulfa (Sulfonamide Antibiotics) Hives NPO:NPO Status: t-1 1730 Last Vitals: Temp: 36.8 C (98.3 F) Heart Rate: 107 Resp: 18 BP: 145/85 SpO2: 95 % O2 Flow Rate: 0 LPM O2 Delivery Device: None (room air) Preg Status/LMP: There is no problem list on file for this patient. Past Surgical History Procedure Laterality Date Bladder defect repair modesto reflux bladder repair at 1 yo Tubal ligation Shoulder surgery Bilateral 2007 rt 2010 lt Foot surgery Right 2007 tendon relase Rotator cuff repair Right Current Medication List Name Sig Last Dose ATORVASTATIN 5 MG ORAL DOSE Take 5 mg by mouth once daily. 08/24/2018 IBUPROFEN 200 MG TABLET Take 200 mg by mouth every six hours as needed. Within last 7 days LIRAGLUTIDE 0.6 MG/0.1 ML (18 MG/3 ML) SUBCUTANEOUS PEN INJECTOR Inject 1.8 mg under the sk in (SUBC) once daily. 08/24/2018 METFORMIN 1,000 MG TABLET Take 1,000 mg by mouth two times daily. 08/24/2018 MULTIVITAMIN WITH MINERALS TABLET Take 1 tablet by mouth once daily. 08/24/2018 OXYCODONE-ACETAMINOPHEN 5 MG-325 MG TABLET Take 1-2 tablets by mouth every four hours as ne eded. Not to exceed 10 tablets per any 24 hour period. PROMETHAZINE 25 MG TABLET Take 1 tablet by mouth four times daily as needed for nausea/vomi ting for up to 10 doses. RANITIDINE 150 MG TABLET Take 150 mg by mouth two times daily. 08/25/2018 Lab Results Component Value Date RATE 96 08/25/2018 ATRIALRATE 96 08/25/2018 WY 162 08/25/2018 QRS 87 08/25/2018 QT 338 08/25/2018 PAXIS 41 08/25/2018 RAXIS -41 08/25/2018 TAXIS 66 08/25/2018 Preoperative Adult Anesthesia Plan Last edited 08/25/18 0696 by Renetta Tamayo MD ROS Pertinent HPI: Pulmonary: Never smoker. No dx of sleep apnea Risks factors for sleep apnea: BMI>35 and Neck circumference> 40 cm Pt at low risk of GEORGE Cardiovascular: FOS x 2 w/o CP/SOB Vascular: VASCULAR SYMPTOMS hyperlipidemia GI/Hepatic: GERD Control: Well controlled : Endo: Pt typically runs around 120-125. Last A1C was 6.7 about 1 month ago. Obesity Diabetes: type 2, oral hypoglymics < 150 Neurological: Current Pain Level: MS: [place] trigger thumb. Heme/Onc: Skin: Obstetrics: PMC Physical Exam General: Patients general appearance: Alert and Cooperative Head & Neck/Airway: TM Distance:Normal Dentition: dentition is normal Mallampati: I Mouth Opening: > = 3 cm Neck Anatomy: Thick, obese Lung Exam: breath sounds normal Cardiac: Rhythm: regular Rate: normal Abdominal: General Findings: Deferred Musculoskeletal: Neuro/Psych: alert Integument: Implants: [id number] Revision History Date/Time User Provider Type Action > 08/25/18 0752 Renetta Tamayo MD Anesthesiologist Addend 08/13/18 1202 Kevin Mendiola RN Registered Nurse Sign Anesthesia Plan Comments ASA ASA 3 NPO Status NPO Status: NPO by protocol Monitors/Lines to be used Standard Anesthetic Consideration PONV prophylaxis and Preop antibiotics Induction intravenous induction Anesthetic Technique General; Obstetric Anesthesia Post-Op Pain Plan IV analgesics; Blood Products Informed Consent PARQ discussed with: patient, Procedures, Alternatives, Risks, and Questions discussed and Risk/benefit of anesthesia plan and blood product discussed ; ; Date Consent Series Given: 08/25/2018 7:40 AM Code status in OR 08/25 7:52 AM documented in this encounter Miscellaneous Notes PMC/ANE PreOp Note - Renetta Tamayo MD - 08/13/2018 11:49 AM PDT ROS Pertinent HPI: Pulmonary: Never smoker. No dx of sleep apnea Risks factors for sleep apnea: BMI>35 and Neck circumference> 40 cm Pt at low risk of GEORGE Cardiovascular: FOS x 2 w/o CP/SOB Vascular: VASCULAR SYMPTOMS hyperlipidemia GI/Hepatic: GERD Control: Well controlled : Endo: Pt typically runs around 120-125. Last A1C was 6.7 about 1 month ago. Obesity Diabetes: type 2, oral hypoglymics < 150 Neurological: Current Pain Level: MS: [place] trigger thumb. Heme/Onc: Skin: Obstetrics: PMC Physical Exam General: Patients general appearance: Alert and Cooperative Head & Neck/Airway: TM Distance:Normal Dentition: dentition is normal Mallampati: I Mouth Opening: > = 3 cm N nicholas Anatomy: Thick, obese Lung Exam: breath sounds normal Cardiac: Rhythm: regular Rate: normal Abdominal: General Findings: Deferred Musculoskeletal: Neuro/Psych: alert Integument: Implants: documented in this encounter Plan of Treatment Not on filedocumented as of this encounter Procedures + +--------+ + + + | Procedure Name | Priori | Date/Time | Associated Diagnosis | Comments | | | ty | | | | + +--------+ + + + | ANE LMA | Routin | 08/25/2018 | | | | | e | 8:09 AM | | | | | | PDT | | | + +--------+ + + + +---+--------+ | | | | | Proced | | | ure | | | Note - | | | | | | [facility] | | | ll, | | | Renetta | | | MD Marnie | | | - | | | 09/26/ | | | 2018 | | | 8:09 | | | AM PDT | | | | | | Proced | | | ure | | | Reason | | | for | | | [place] | | | tion: | | | For | | | surgic | | | al | | | proced | | | ure, | | | Locati | | | on | | | Perfor | | | med: | | | [place] , | | | Patien | | | t was | | | preoxy | | | genate | | | dMask | | | Ventil | | | ationG | | | rade 0 | | | - | | | Ventil | | | ation | | | by | | | mask | | | not | | | attemp | | | breanne | | | ETTSGA | | | Atraum | | | atic | | | Placem | | | ent: | | | Yes | | | LMA | | | Type: | | | Classi | | | c | | | LMA | | | Size: | | | 4LMA | | | Size: | | | 4 LMA | | | | | | positi | | | ve for | | | Etco2 | | | | | | Narrat | | | iveAtt | | | ending | | | | | | physic | | | ally | | | presen | | | t | +---+--------+ documented in this encounter Visit Diagnoses Not on filedocumented in this encounter Administered Medications + +--------+ +--------+------+------+ | Medication Order | MAR | Action | Dose | Rate | Site | | | Action | Date | | | | + +--------+ +--------+------+------+ | clindamycin (CLEOCIN) IV 900 | Given | 08/25/20 | 900 mg | | | | mg IN D5W (RTU) 900 mg, | | 18 8:04 | | | | | intravenous, ONCE, 1 dose, Wed | | AM PDT | | | | | 08/25/18 at 0630 | | | | | | + +--------+ +--------+------+------+ +---+---+ | | | +---+---+ + +-------+ +-------+---+---+ | dexamethasone (DECADRON) | Given | 08/25/20 | 10 mg | | | | injection intravenous, | | 18 8:07 | | | | | INTRAPROCEDURE PRN, Starting Wed | | AM PDT | | | | | 08/25/18 at 0807, Until Wed | | | | | | | 08/25/18 at 0829 | | | | | | + +-------+ +-------+---+---+ +---+---+ | | | +---+---+ + +-------+ +--------+---+---+ | fentaNYL (SUBLIMAZE) injection | Given | 08/25/20 | 50 mcg | | | | intravenous, INTRAPROCEDURE PRN, | | 18 8:04 | | | | | Starting Thu08/25/18 at 0804, | | AM PDT | | | | | Until Thu08/25/18 at 0829 | | | | | | + +-------+ +--------+---+---+ +---+---+ | | | +---+---+ + +-------+ +-------+---+---+ | ketorolac (TORADOL) injection | Given | 08/25/20 | 30 mg | | | | intravenous, INTRAPROCEDURE PRN, | | 18 8:07 | | | | | Starting Thu08/25/18 at 0807, | | AM PDT | | | | | Until Thu08/25/18 at 0829, prn | | | | | | | inflammation | | | | | | + +-------+ +-------+---+---+ +---+---+ | | | +---+---+ + + + +---+---+---+ | lactated Ringers IV 1,000 mL, | given by | 08/25/20 | | | | | intravenous, POSTPROCEDURE PRN, 2 | | 18 8:33 | | | | | doses, Starting 08/25/18 at | anesthes | AM PDT | | | | | 0753, Until 08/25/18 at 0914, | iology | | | | | | as indicated for hypotension, | | | | | | | poor hydration | | | | | | + + + +---+---+---+ +---------+ +---+-------+---+ | New Bag | 08/25/20 | | 300 | | | | 18 7:59 | | mL/hr | | | | AM PDT | | | | +---------+ +---+-------+---+ +---+---+ | | | +---+---+ + +-------+ +------+---+---+ | lidocaine PF (XYLOCAINE MPF) 10 | Given | 08/25/20 | 4 mL | | | | mg/mL (1 %) injection | | 18 8:01 | | | | | INTRAPROCEDURE PRN, Starting Wed | | AM PDT | | | | | 08/25/18 at 0801, Until Wed | | | | | | | 08/25/18 at 0829 | | | | | | + +-------+ +------+---+---+ +---+---+ | | | +---+---+ + +-------+ +------+---+---+ | ondansetron (ZOFRAN) injection | Given | 08/25/20 | 4 mg | | | | intravenous, INTRAPROCEDURE PRN, | | 18 8:19 | | | | | Starting Thu08/25/18 at 0819, | | AM PDT | | | | | Until Thu08/25/18 at 0829 | | | | | | + +-------+ +------+---+---+ +---+---+ | | | +---+---+ + +-------+ +--------+---+---+ | propofol (DIPRIVAN) injection | Given | 08/25/20 | 200 mg | | | | intravenous, INTRAPROCEDURE PRN, | | 18 8:01 | | | | | Starting Thu08/25/18 at 0801, | | AM PDT | | | | | Until Thu08/25/18 at 0829 | | | | | | + +-------+ +--------+---+---+ +---+---+ | | | +---+---+ + +-------+ +---------+---+---+ | scopolamine (TRANSDERM-SCOP) 1 | Given | 08/25/20 | 1 patch | | | | mg over 3 days transdermal, | | 18 7:59 | | | | | INTRAPROCEDURE PRN, Starting Wed | | AM PDT | | | | | 08/25/18 at 0759, Until Wed | | | | | | | 08/25/18 at 0829 | | | | | | + +-------+ +---------+---+---+ +---+---+ | | | +---+---+ documented in this encounter"
--- OUTSIDE RECORDS SUMMARY | ~2020-09-11 | XMS | Encounter Summary ---
Demographics + + + | Address | [address] | | | [place] [address] | + + + | Home Phone | | + + + | Preferred Language | Unknown | + + + | Marital Status | | + + + | Yarsanism Affiliation | NON | + + + | Race | White | + + + | Ethnic Group | Not or | + + + Author + + + | Author | [facility] | + + + | Organization | [facility] | + + + | Address | Unknown | + + + | Phone | Unavailable | + + + Support + + + + + | Name | Relationship | Address | Phone | + + + + + | Tori Braxton | ECON | [address] | | | [place] | | [place] [address] | | + + + + + | Nikole Partida | ECON | [address] | | | | | [place] | | | | | [address] | | + + + + + Care Team Providers + +------+ + | Care Plugman Name | Role | Phone | + [...] 7 | | | | | thumb, right | [address] | [address] | | | | | thumb | [address] | Drive | | | | | Procedures | | [place], | | | | | REQUEST TO | [place], | [place] [address] | | | | | SURGERY | [place] [address] | Phone: | | | | | MINCING MACHINE OPERATOR | Phone: | [phone] | | | | | [place] [facility] | [phone] | Fax: | | | | | FINGER | Fax: | [phone] | | | | | TENDON | [phone] | | | | | | SHEATH | | | +--------+--------+ + + + + Encounter Details +--------+---------+ + + + | Date | Type | Department | Care Team | Description | +--------+---------+ + + + | 08/25/ | Surgery | [facility] | Ramu Kessler MD | RIGHT TRIGGER THUMB | | 2018 | | [facility] [address] | RELEASE | | | | [address] [place], | | | | | [place] | [place] [address] | | | | | [address] | [phone] | | | | | | | [...] + + + | Blood Pressure | 128/75 | 08/25/2018 9:33 AM | | | | | PDT | | + + + + + | Pulse | 90 | 08/25/2018 9:33 AM | | | | | PDT | | + + + + + | Temperature | 36.8 C (98.3 F) | 08/25/2018 9:33 AM | | | | | PDT | | + + + + + | Respiratory Rate | 18 | 08/25/2018 9:33 AM | | | | | PDT | | + + + + + | Oxygen Saturation | 95% | 08/25/2018 9:33 AM | | | | | PDT | | + + + + + | Inhaled Oxygen | - | - | | | Concentration | | | | + + + + + | Weight | 123.2 kg (271 lb 9.7 | 08/25/2018 6:35 AM | | | | oz) | PDT | | + + + + + | Height | 175.3 cm (5' 9") | 08/25/2018 6:35 AM | | | | | PDT | | + + + + + | Body Mass Index | 40.11 | 08/25/2018 6:35 AM | | | | | PDT | | + + + + + documented in this encounter Discharge Instructions Instructions Michelle Nicole RN - 08/25/2018POST SEDATION DISCHARGE INSTRUCTIONS The medications you have [...] + + documented as of this encounter H&P Notes Ramu Kessler MD - 08/25/2018 7:15 AM PDTI have examined the patient and reviewed the Hi story and Physical and have confirmed that it is accurate and current. RAMU KESSLER MD uRamu del real MD - 0 08/09/2018 10:15 AM PDT Chief Complaint: Right hand pain HPI: Devora De Leon is a 43 y.o. Right hand dominant diabetic dominant female from [place] who p resents to the office today for evaluation of right hand pain. The pain is located over the A1 janak region of her right thumb. The patient reports associated mechanical catching. Bobo pedraza has had symptoms since April 2018. Her symptoms are worse in the mornings. She has attempte d bracing without significant perceived benefit. Due to persistent symptoms she presents to the office for orthopaedic evaluation. She was self referred to the office today for orthop edic evaluation. She has been treated for left trigger thumb with a cortisone injection. Her thumb continues to do well. The injection cause significant elevations in her blood sugar. She would like to avoid this. Current pain is 3/10 and is characterized as dull, aching and intermittent. Symptoms are w orsening. The pain does not wake the patient at night. It is associated with catching. 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 She is using no medication s for the pain. Past Medical and Surgical History: Reviewed per patient intake form. Past Medical History: Diagnosis Date Diabetes mellitus (HCC) High cholesterol No past surgical history on file. Current Outpatient Prescriptions Medication atorvastatin 5 mg [...] were no vitals taken for this visit. General: AAOx3, cooperative with exam . HEENT: Nonicteric. Cardiac: Regular rate and rhythm, no murmurs or gallops appreciated. Chest: Clear. Abd: Soft, non tender. Skin: Intact over surgical site without erythema or lesions. Right hand: Inspection: No swelling noted Palpation: Tender A1 janak of thumb Range of motion: Full range Strength: Normal strength Left hand: Inspection: No swelling. Palpation: Nontender. Range of motion: Full range of motion. Strength: Normal strength. Radiology: X-ray examination demonstrates no evidence of acute fracture or significant degenerative ar thritis. Assessment: Right hand trigger thumb Right hand pain Plan: The patient's clinical history and physical exam are consistent with right trigger thumb. I reviewed the natural history of this disorder with the patient and have outlined treatment options. She would like to avoid cortisone injections due to her history of diabetes opal tuthierno. This is very reasonable. I have recommended surgical intervention. I have reviewed the surgical procedure and have outlined the post op rehabilitation and a timeline for recovery . She understands the risks and benefits of the procedure and wishes to proceed. She will be schedule for a right trigger thumb release on 08/25/18. Follow up: two weeks post op with Princess Kessler MD [facility] Orthopaedics and Rehabilitation Clinical Java Project Manager Board Certified Orthopaedic Surgeon Fellowship Trained in Sports Medicine and Arthroscopic Surgery Specializing in Knee and Shoulder Surgery [facility] [address] [place] [address] Office: [phone] [email or web address] documented in this enc ounter Procedure Notes Ramu Kessler MD - 08/25/2018 8:21 AM PDTAssociated Order(s): PROCEDURE NOTEORTHOPAEDIC OPERATIVE REPORT Date of Surgery: 08/25/2018 Attending Surgeon: Ramu Kessler M.D. Financial Institution Branch Manager(s): KATHARINE Partida Preoperative Diagnosis(es): Right trgger thumb Postoperative Diagnosis(es): Same Procedures Performed: Right trigger thumb release Anesthesia: General Complications: None. Estimated Blood Loss: Minimal Disposition: To the PACU, stable Brief Clinical Note and Indications: Devora De Leon is a 43 y.o. female patient presented with painful triggering of the r ight thumb. We discussed the relative risks and benefits of continued conservative managemen t versus operative intervention, and the patient elected to proceed with surgery. Procedure: The patient was brought to the operating room, transferred to the OR table, given monitored general anesthesia care without complications. A surgical pause was held to properly identi fy the patient, note that the surgical site was marked, and to verify that the planned proce dure was clearly indicated on the consent form. The right trigger thumb was addressed at this point. Appropriate skin markings were made, and a 1 cm transverse incision was made at the volar MCP flexion crease of the thumb. Blunt dissection was carried through subcutaneous tissue, and the radial and ulnar neurovascular b undles to the thumb were identified and carefully protected. The annular janak was incised longitudinally with a 15 blade. The release was completed with tenotomy scissors. The flexor pollicis longus tendon was delivered through the wound to confirm complete release. The wound was then irrigated and closed with 4-0 nylon. I local field block with marcaine was administered. A sterile dressing was applied after tourniquet deflation. The patient w as then returned to her hospital bed and transferred to the short-stay unit in stable condit ion. The patient tolerated the procedure well with no complications and minimal blood loss. Ramu Kessler M.D. [facility] Sports Medicine and Orthopaedic Surgery [address] [place] [phone] [email or web address] Ramu Heck MD - 08/25/2018 6:52 AM PDTAssociated Order(s): PROCEDURE NOTEBrief Op Note ORTHOPAEDIC OPERATIVE NOTE IDENTIFICATION: Patient: Devora De Leon Author: RAMU KESSLER MD Date & Time: 08/25/2018, 6:52 AM Pre-Procedure Diagnosis:Right trigger thumb Post-Procedure Diagnosis: Same Anesthesia: General Surgeons: Ramu Kessler MD Financial Institution Branch Manager: KATHARINE Partida Procedure: Right trigger thumb release Drains: none EBL: minimal Complications: None apparent Dispo: Transferred to the PACU in stable condition. Ramu Kessler M.D. [facility] Sports Medicine and Orthopaedic Surgery [address] [place] [phone] [email or web address] documented in this enc ounter Miscellaneous Notes Plan of Care - Michelle Nicole RN - 08/25/2018 9:54 AM PDTProblem: General Plan of Car e (Adult, Obstetrics, Pediatrics) Goal: Plan of Care Review Uneventful recovery, pain is well controlled. Patient states understanding to discharge ins tructions, all questions answered. Educated patient on CMS. Patient states understanding to instructions. documented in this encounter Plan of Treatment Not on filedocumented as of this encounter Procedures + +--------+ + + + | Procedure Name | Priori | Date/Time | Associated Diagnosis | Comments | | | ty | | | | + +--------+ + + + | PROCEDURE NOTE | Routin | 08/25/2018 | | Results for this | | | e | 8:21 AM | | procedure are in the | | | | PDT | | results section. | + +--------+ + + + | TRIGGER RELEASE | Electi | 08/25/2018 | Trigger finger of | | | | ve | 7:54 AM | right thumb | | | | Surgic | PDT | [M65.311] | | | | al | | | | + +--------+ + + + | 12 LEAD ECG | Routin | 08/25/2018 | | Results for this | | | e | 7:02 AM | | procedure are in the | | | | PDT | | results section. | + +--------+ + + + | PROCEDURE NOTE | Routin | 08/25/2018 | | Results for this | | | e | 6:52 AM | | procedure are in the | | | | PDT | | results section. | + +--------+ + + + | HECTOR DICKSONPOC | Urgent | 08/25/2018 | | Results for this | | | | 6:42 AM | | procedure are in the | | | | PDT | | results section. | + +--------+ + + + documented in this encounter Results PROCEDURE NOTE (08/25/2018 8:21 AM PDT) + + + | Narrative | Performed At | + + + | Ramu Kessler MD 08/25/2018 8:23 AM ORTHOPAEDIC OPERATIVE | | | REPORT Date of Surgery: 08/25/2018 Attending Surgeon: Ramu | | | José Miguel Kessler Financial Institution Branch Manager(s): KATHARINE Partida Preoperative | | | Diagnosis(es): Right trgger thumb Postoperative Diagnosis(es): | | | Same Procedures Performed: Right trigger thumb release | | | Anesthesia: General Complications: None. Estimated Blood Loss: | | | Minimal Disposition: To the PACU, stable Brief Clinical Note | | | and Indications: Devora De Leon is a 43 y.o. female patient | | | presented with painful triggering of the right thumb. We discussed | | | the relative risks and benefits of continued conservative management | | | versus operative intervention, and the patient elected to proceed | | | with surgery. Procedure: The patient was brought to the [...] | indicated on the consent form. The right trigger thumb was | | | addressed at this point. Appropriate skin markings were made, and | | | a 1 cm transverse incision was made at the volar MCP flexion crease | | | of the thumb. Blunt dissection was carried through subcutaneous | | | tissue, and the radial and ulnar neurovascular bundles to the thumb | | | were identified and carefully protected. The annular janak was | | | incised longitudinally with a 15 blade. The release was completed | | | with tenotomy scissors. The flexor pollicis longus tendon was | | | delivered through the wound to confirm complete release. The | | | wound was then irrigated and closed with 4-0 nylon. I local field | | | block with marcaine was administered. A sterile dressing was | | | applied after tourniquet deflation. The patient was then returned to | | | her hospital bed and transferred to the short-stay unit in stable | | | condition. The patient tolerated the procedure well with no | | | complications and minimal blood loss. Ramu Kessler M.D. | | | [facility] Sports Medicine and Orthopaedic Surgery [address] [place] [address] | | | [address] [address] | | + + + 12 LEAD ECG (08/25/2018 7:02 AM PDT) + + + + + + | Component | Value | Ref Range | Performed | Pathologist | | | | | At | Signature | + + + + + + | VENTRICULAR | 96 | bpm | [facility] | | | RATE | | | [facility] | | + + + + + + | ATRIAL RATE | 96 | ms | [facility] | | | | | | [facility] | | + + + + + + | P-R | 162 | ms | [facility] | | | INTERVAL | | | CARDI[facility] | | + + + + + + | P AXIS | 41 | deg | [facility] | | | | | | [facility] | | + + + + + + | QRS | 87 | ms | [facility] | | | DURATION | | | CARDIOLOG[facility] | | + + + + + + | QT | 338 | ms | [facility] | | | | | | [facility] | | + + + + + + | QTC-ZANE | 428 | ms | [facility] | | | | | | [facility] | | + + + + + + | R AXIS | -41 | deg | [facility] | | | | | | [facility] | | + + + + + + | T AXIS | 66 | deg | [facility] | | | | | | [facility] | | + + + + + + | ECG | Sinus rhythm | | [facility] | | | IMPRESSION | | | CARDIOLOG[facility] | | + + + + + + | ECG | Low voltage, precordial | | [facility] | | | IMPRESSION | leads | | CARDIOLOGY | | + + + + + + | ECG | no prior EKG to compare- | | [facility] | | | IMPRESSION | OTHERWISE NORMAL ECG - | | CARDIOLOGY | | + + + + + + | ECG | Electronically signed | | [facility] | | | IMPRESSION | by: DAVID KAPOOR | | CARDIOLOGY | | | | 08-26-2018 00:16:20 | | | | + + + + + + + + | Specimen | + + | | + + + + + | Narrative | Performed At | + + + | | | + + + + +---------+ + + | Performing | Address | City/State/Zipcode | Phone Number | | Organization | | | | + +---------+ + + | [facility] | | | | + +---------+ + + PROCEDURE NOTE (08/25/2018 6:52 AM PDT) + + + | Narrative | Performed At | + + + | Ramu Kessler MD 08/25/2018 8:21 AM Brief Op Note | | | ORTHOPAEDIC OPERATIVE NOTE IDENTIFICATION: Patient: Devora | | | Irais De Leon Author: RAMU KESSLER MD | | | Date & Time: 08/25/2018, 6:52 AM | | | | | | Pre-Procedure Diagnosis:Right trigger thumb Post-Procedure Diagnosis: | | | Same Anesthesia: General Surgeons: Ramu Kessler MD Financial Institution Branch Manager: | | | KATHARINE Partida Procedure: Right trigger thumb release Drains: | | | none EBL: minimal Complications: None apparent Dispo: | | | Transferred to the PACU in stable condition. Ramu | | | Rachel Kessler M.D. [facility] [address] | [address] [place] [address] | | | | | + + + CAP GLU,POC (08/25/2018 6:42 AM PDT) + +-------+ + + + | Component | Value | Ref Range | Performed | Pathologist | | | | | At | Signature | + +-------+ + + + | BLOOD | 128 | 70 - 105 mg/dL | [facility] | | | GLUCOSE, | | | OF CARE | | | POC | | | TESTING | | + +-------+ + + + + + | Specimen | + + | Blood | + + + +---------+ + + [...] +------+------+ + | bupivacaine | Given | 08/25/20 | 7 mL | | Surgical | | (MARCAINE,SENSORCAINE) 0.25 % | | 18 8:15 | | | Site | | (2.5 mg/mL) injection | | AM PDT | | | | | INTRAPROCEDURE PRN, Starting Wed | | | | | | | 08/25/18 at 0815, Until Wed | | | | | | | 08/25/18 at 0829 | | | | | | + +--------+ +------+------+ + + +---+ | | | + +---+ | lidocaine PF (XYLOCAINE MPF) 10 | | | mg/mL (1 %) injection 2 mg 2 mg | | | (0.2 mL), infiltration, | | | PREPROCEDURE ONCE, 1 dose, | | | Starting Thu08/25/18 at 0625, | | | Until Thu08/25/18 at 1554 | | + +---+ | | | + +---+ | lidocaine PF (XYLOCAINE MPF) 10 | | | mg/mL (1 %) injection | | | intradermal, PREPROCEDURE ONCE, 1 | | | dose, Starting Thu08/25/18 at | | | 0625, Until Thu08/25/18 at 1554 | | + +---+ | | | + +---+ + +-------+ +-------+---+ + | NaCl 0.9 % irrigation | Given | 08/25/20 | 30 mL | | Surgical | | INTRAPROCEDURE PRN, Starting Wed | | 18 8:21 | | | Site | | 08/25/18 at 0821, Until Wed | | AM PDT | | | | | 08/25/18 at 0829 | | | | | | + +-------+ +-------+---+ + + +---+ | | | + +---+ | NaCl flush 2-10 mL 2-10 mL, | | | intravenous, TWICE DAILY, First | | | dose on Thu08/25/18 at 0900, | | | Until Discontinued | | + +---+ | | | + +---+ | NaCl flush 2-10 mL 2-10 mL, | | | intravenous, NEEDED, Starting | | | 08/25/18 at 0625, Until Wed | | | 08/25/18 at 1554, line patency per | | | policy | | + +---+ | | | + +---+ | NaCl flush 5 mL 5 mL, | | | intravenous, NEEDED, 1 dose, | | | Starting 08/25/18 at 0625, | | | Until 08/25/18 at 1554, line | | | patency | | + +---+ | | | + +---+ | sodium chloride 0.9 % (NS) IV | | | infusion 25-50 mL, intravenous, | | | NEEDED, Starting 08/25/18 | | | at 0625, Until 08/25/18 at | | | 1554, line patency per policy | | + +---+ | | | + +---+ | sodium chloride 0.9 % (NS) IV | | | infusion 10 mL/hr, intravenous, | | | PROCEDURE CONTINUOUS, Starting | | | 08/25/18 at 0630, Until Wed | | | 08/25/18 at 1554 | | + +---+ | | | + +---+ documented in this encounter
--- OUTSIDE RECORDS SUMMARY | ~2020-09-11 | XMS | Encounter Summary ---
Demographics + + + | Address | [address] | | | [place] [address] | + + + | Home Phone | | + + + | Preferred Language | Unknown | + + + | Marital Status | | + + + | Episcopal Affiliation | NON | + + + | Race | White | + + + | Ethnic Group | Not or | + + + Author + + + | Author | [facility] | + + + | Organization | [facility] | + + + | Address | Unknown | + + + | Phone | Unavailable | + + + Support + + + + + | Name | Relationship | Address | Phone | + + + + + | Tori Braxton | ECON | [address] | | | [place] | | [place] [address] | | + + + + + | Nikole Partida | ECON | [address] | | | | | [place] | | | | | [address] | | + + + + + Care Team Providers + +------+ + | Care Dress Operator Name | Role | Phone | + +------+ + | Vinny Lorenzana PA-C | PCP | | + +------+ + Reason for Visit + + + | Reason | Comments | + + + | Pre-op evaluation | | + + + Encounter Details +--------+ + + + + | Date | Type | Department | Care Team | Description | +--------+ + + + + | 10/01/ | Telephone-S | Pre-Operative | | Pre-op evaluation | | 2018 | cheduled | Clinic at [facility] | | | | | | Hospital [address] | | | | | | [place], | | | | | | [place] [address] | | | | | | [phone] | | | +--------+ + + + + Anesthesia Record + + + + + | Procedure Name | Responsible | Anesthesia Start | Anesthesia Stop Time | | | Anesthesiologist | Time | | + + + + + | LEFT TRIGGER THUMB | Haris Villa, | 10/06/18925 | 11/07/18 1003 | | RELEASE (Left Hand) | MD | | | + + + + + +----+---+ + + | Da | T | Event | Comment | | te | i | | | | | m | | | | | e | | | +----+---+ + + | 11 | 0 | Eq Check | Anesthesia machine checked Equipment verified | | /0 | 9 | | | | 7/ | 0 | | | | 20 | 7 | | | | 18 | | | | +----+---+ + + | | 0 | Pt. Check | Prior to anesthesia start, pt. Identified, examined, chart | | | 9 | | reviewed, PARQ held, anesthetic plan made or approved by | | | 1 | | attending anesthesiologist. NPO status confirmed as appropriate | | | 4 | | for procedure Preoperative evaluation: unchanged | +----+---+ + + | | 0 | An Start | | | | 9 | | | | | 2 | | | | | 6 | | | +----+---+ + + | | 0 | An Start | | | | 9 | Data | | | | 3 | | | | | 3 | | | +----+---+ + + | | 0 | Vitals | Monitors applied Vital signs checked Patient ready for anesthesia | | | 9 | Checked | | | | 3 | | | | | 6 | | | +----+---+ + + | | 0 | Abx | | | | 9 | Administere | | | | 3 | d | | | | 7 | | | +----+---+ + + | | 0 | ETT | | | | 9 | | | | | 3 | | | | | 8 | | | +----+---+ + + | | 0 | Ready | | | | 9 | | | | | 3 | | | | | 9 | | | +----+---+ + + | | 0 | An Tourn | | | | 9 | Inflated | | | | 4 | | | | | 5 | | | +----+---+ + + | | 0 | Incision | | | | 9 | | | | | 4 | | | | | 6 | | | +----+---+ + + | | 0 | An Tourn | | | | 9 | Deflated | | | | 5 | | | | | 3 | | | +----+---+ + + | | 0 | Surgery end | | | | 9 | | | | | 5 | | | | | 3 | | | +----+---+ + + | | 0 | An Extubate | Neuromuscular function Intact. Pharynx suctioned. Patient obeys | | | 9 | | commands. Adequate pulmonary mechanics. | | | 5 | | | | | 8 | | | +----+---+ + + | | 0 | an stop | | | | 9 | data | | | | 5 | | | | | 8 | | | +----+---+ + + | | 1 | PACU Rpt | | | | 0 | Given | | | | 0 | | | | | 3 | | | +----+---+ + + | | 1 | Anesthesia | | | | 0 | End | | | | 0 | | | | | 3 | | | +----+---+ + + +------+ | Meds | +------+ + + + No medications | on file. | + + + + + | No agents on file. | + + + + | No blood administrations on file. | + + +--------+ + + + | Type | Details | Placement | Removal | +--------+ + + + | Incisi | Right; thumb | 08/25/18811 by | | | on | | | | +--------+ + + + | Incisi | 10/06/18; Dr. Kessler; Left; | 10/06/18 0000 by | | | on | Anterior; thumb | Deirdre Varela RN | | +--------+ + + + | Periph | 10/06/18; 0836; Right; Forearm; | 10/06/18 0836 by | 10/06/18 1126 by | | eral | 20 g; Positive; 10/06/18; 1126; | Mercy Cheng RN | Mercy Cheng RN | | IV | Discharge | | | +--------+ + + + documented in [...] + + + | Blood Pressure | - | - | | + + + + + | Pulse | - | - | | + + + + + | Temperature | - | - | | + + + + + | Respiratory Rate | - | - | | + + + + + | Oxygen Saturation | - | - | | + + + + + | Inhaled Oxygen | - | - | | | Concentration | | | | + + + + + | Weight | - | - | | + + + + + | Height | 175.3 cm (5' 9") | 10/01/2018 10:12 AM | | | | | PDT | | + + + + + | Body Mass Index | - | - | | + + + + + documented in this encounter Patient Instructions Patient Instructions Leslee Beltran RN - 10/01/2018 10:14 AM PDTNothing to eat or dr ink after midnight. Check in at room 410 on the morning of surgery, next door to elevators o n your right. MD office will call you with your arrival time prior to you surgery. Please le ave all jewelry at home day of surgery; rings, watches, necklaces, etc. Use no make - up, lo tions, perfumes, or body powders on the day of your surgery. Please take your ranitidine AM of surgery with a sip of water. Do not take any of your diabetic medication day of surgery unless instructed to do so by yo physician. Please stop by lab on the morning of surgery. Patient advised of the above inf ormation via phone interview. documented in this encounter Progress Notes Leslee Beltran RN - 10/01/2018 10:25 AM PDTFormatting of this note might be differen t from the original. 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 Had multiple UTI's before surgery was don e. When she had kidney work up done at 14 or 15 yo, was told one kidney 1/2 size it should b e and the other 1/3 size it should be and both severely scarred. Pt did have a kidney functi on work-up done about 1 year ago and told both functioning will in normal range. Pt had BMP done before her last surgery 08/25/18 due to above mentioned kidney hx. No stephens es in health hx. Want another BMP before this surgery?? Will get HCG and FSBS AM of surgery. LESLEE BELTRAN RN Lab Results Component Value Date NA 140 08/25/2018 K 4.5 08/25/2018 CL 103 08/25/2018 BICARB 26 08/25/2018 BUN 16 08/25/2018 EGFRAFRICAN >60 08/25/2018 EGFRNONAFR 60 08/25/2018 CR 1.0 08/25/2018 GLU 128 08/25/2018 CA 8.9 08/25/2018 ANIONGAP 11 08/25/2018 Nothing further. RENETTA TAMAYO MD 10/01/2018 10:37 AM documented in this encounter Plan of Treatment Not on filedocumented as of this encounter Results HCG (URINE ONLY) (10/06/2018 7:45 AM PST) + + + + + + | Component | Value | Ref Range | Performed | Pathologist | | | | | At | Signature | + + + + + + | HCG QUAL | Negative | mIU/mL | [facility] | | | URINE | Comment: | | A MEDICAL | | | | | | CENTER | | | | HCG=<25mIU/mL. | | | | + + + + + + + + | Specimen | + + | Urine - Urine | | (substance) | + + + + + + + | Performing | Address | City/State/Zipcode | Phone Number | | Organization | | | | + + + + + | [facility] | [address] | [place] | [phone] | | [facility] [place] | [facility] | [address] | | + + + + + documented in this encounter Visit Diagnoses + + | Diagnosis | + + | Pre-op exam - Primary Preoperative examination, unspecified | + + documented in this encounter
--- OUTSIDE RECORDS SUMMARY | ~2020-09-11 | XMS | Encounter Summary ---
Demographics + + + | Address | [address] | | | [place] [address] | + + + | Home Phone | | + + + | Preferred Language | Unknown | + + + | Marital Status | | + + + | Zoroastrian Affiliation | NON | + + + | Race | White | + + + | Ethnic Group | Not or | + + + Author + + + | Author | [facility] | + + + | Organization | [facility] | + + + | Address | Unknown | + + + | Phone | Unavailable | + + + Support + + + + + | Name | Relationship | Address | Phone | + + + + + | Tori Braxton | ECON | [address] | | | [place] | | [place] [address] | | + + + + + | Nikole Partida | ECON | [address] | | | | | [place] | | | | | [address] | | + + + + + Care Team Providers + +------+ + | Care Dam Attendant Name | Role | Phone | + +------+ + | Vinny Lorenazna PA-C | PCP | | + +------+ + Encounter Details +--------+------+ + + + | Date | Type | Department | Care Team | Description | +--------+------+ + + + | 08/25/ | Lab | Laboratory at | | Pre-op exam | | 2017 | | [facility] | | | | | | [place] [address] | | | | | | [address] [place] | | | | | | [address] | | | | | | [phone] | | | +--------+------+ + + + Social History + +-------+ [...] | + +--------+ + + + | HCG (URINE ONLY) | Routin | 08/25/2018 | Pre-op exam | Results for this | | | e | 6:00 AM | | procedure are in the | | | | PDT | | results section. | + +--------+ + + + | BASIC METABOLIC SET | Routin | 08/25/2018 | Pre-op exam | Results for this | | (NA, K, CL, TCO2, | e | 6:00 AM | | procedure are in the | | BUN, CR, GLU, CA) | | PDT | | results section. | + +--------+ + + + documented in this encounter Results HCG (URINE ONLY) (08/25/2018 6:00 AM PDT) + + + + + [...] + + + + | [facility] | And | [place], [place] | [phone] | | [facility] [place] | [facility] | [address] | | + + + + + BASIC METABOLIC SET (NA, K, CL, TCO2, BUN, CR, GLU, CA) (08/25/2018 6:00 AM PDT) + +---------+ + + + | Component | Value | Ref Range | Performed | Pathologist | | | | | At | Signature | + +---------+ + + + | GLUCOSE, | 171 (H) | 70 - 105 mg/dL | [facility] | | | PLASMA | | | A MEDICAL | | | (LAB) | | | CENTER | | + +---------+ + + + | BUN, PLASMA | 16 | 6 - 26 mg/dL | [facility] | | | (LAB) | | | A MEDICAL | | | | | | CENTER | | + +---------+ + + + | CREATININE, | 1.0 | 0.6 - 1.1 mg/dL | [facility] | | | PLASMA | | | A MEDICAL | | | | | | CENTER | | + +---------+ + + + | SODIUM, | 140 | 137 - 146 | [facility] | | | PLASMA | | mmol/L | A MEDICAL | | | (LAB) | | | CENTER | | + +---------+ + + + | POTASSIUM, | 4.5 | 3.4 - 5.3 | [facility] | | | PLASMA | | mmol/L | A MEDICAL | | | (LAB) | | | CENTER | | + +---------+ + + + | CHLORIDE, | 103 | 96 - 106 mmol/L | [facility] | | | PLASMA | | | A MEDICAL | | | (LAB) | | | CENTER | | + +---------+ + + + | TOTAL CO2, | 26 | 18 - 30 mmol/L | [facility] | | | PLASMA | | | A MEDICAL | | | (LAB) | | | CENTER | | + +---------+ + + + | CALCIUM, | 8.9 | 8.5 - 10.8 | [facility] | | | PLASMA | | mg/dL | A MEDICAL | | | (LAB) | | | CENTER | | + +---------+ + + + | BUN/CREATIN | 16 | 6 - 20 | [facility] | | | INE RATIO | | | A MEDICAL | | | | | | CENTER | | + +---------+ + + + | EGFR | >60 | >60 mL/min | [facility] | | | - | | | A MEDICAL | | | GREEK | | | CENTER | | + +---------+ + + + | EGFR NON | 60 (L) | >60 mL/min | [facility] | | | -CJ | | | A MEDICAL | | | RICAN | | | CENTER | | + +---------+ + + + | ANION GAP | 11 (L) | 12 - 20 mmol/L | [facility] | | | | | | A MEDICAL | | | | | | CENTER | | + +---------+ + + + | FASTING 8 | Yes | | [facility] | | | HOURS OR | | | A MEDICAL | | | MORE? | | | CENTER | | + +---------+ + + + + + | Specimen | + + | Blood - Blood | | (substance) | + + + + + + + | Performing | Address | City/State/Zipcode | Phone Number | | Organization | | | | + + + + + | [facility] | [facility] | [place] | [phone] | | [facility] | [address] | [address] | | + + + + + documented in this encounter Visit Diagnoses + + | Diagnosis | + + | Pre-op exam Preoperative examination, unspecified | + + documented in this encounter"
--- OUTSIDE RECORDS SUMMARY | ~2020-09-11 | XMS | Clinical Summary ---
Demographics + + + | Address | [address] | | | [place] [address] | + + + | Home Phone | | + + + | Preferred Language | Unknown | + + + | Marital Status | | + + + | Yazidism Affiliation | NON | + + + | Race | White | + + + | Ethnic Group | Not or | + + + Author + + + | Author | [facility] | + + + | Organization | [facility] | + + + | Address | Unknown | + + + | Phone | Unavailable | + + + Support + + + + + | Name | Relationship | Address | Phone | + + + + + | Tori Braxton | ECON | [address] | | | [place] | | [place] [address] | | + + + + + | Nikole Partida | ECON | [address] | | | | | [place] | | | | | [address] | | + + + + + Care Team Providers + +------+ + | Care Showroom Manager Name | Role | Phone | + +------+ + | Vinny Lorenzana PA-C | PCP | | + +------+ + Source Comments RUBEN is fully live on both EpicCare Ambulatory and EpicCare InPatient.[facility] Allergies + + + + + + | Active Allergy | Reactions | Severity | Noted | Comments | | | | | Date | | + + + + + + | Cephalexin | Hives | | 05/10/20 | | | | | | 18 | | + + + + + + | Penicillin | Hives | | 05/10/20 | | | | | | 18 | | + + + + + + | Sulfa (Sulfonamide | Hives | | 05/10/20 | | | Antibiotics) | | | 18 | | + + + + + + Medications + + + +---------+------+------+-------+ | Medication | Sig | Dispensed | Refills | Star | End | Statu | | | | | | t | Date | s | | | | | | Date | | | + + + +---------+------+------+-------+ | metFORMIN 1,000 mg | Take 1,000 mg by | | 0 | | | Activ | | oral tablet | mouth two times | | | | | e | | | daily. | | | | | | + + + +---------+------+------+-------+ | atorvastatin 5 mg | Take 5 mg by mouth | | 0 | | | Activ | | oral tablet | once daily at | | | | | e | | | bedtime. | | | | | | + + + +---------+------+------+-------+ | | Take 1-2 tablets by | 30 | 0 | 07/31 | | Activ | | oxyCODONE-acetaminop | mouth every four | tablet | | 0/20 | | e | | hen (PERCOCET) 5-325 | hours as needed. Not | | | 18 | | | | mg oral | to exceed 10 | | | | | | | tabletIndications: | tablets per any 24 | | | | | | | Trigger thumb of | hour period. | | | | | | | right hand | | | | | | | + + + +---------+------+------+-------+ +---+ + | | Additional | | | InformationPatient | | | not taking. Reported | | | on 09/07/2018 1:55 | | | PM | +---+ + + + +--------+---+------+---+-------+ | PROMETHAZINE 25 mg | Take 1 tablet by | 10 | 1 | 07/31 | | Activ | | oral | mouth four times | tablet | | 0/20 | | e | | tabletIndications: | daily as needed for | | | 18 | | | | Trigger thumb of | nausea/vomiting for | | | | | | | right hand | up to 10 doses. | | | | | | + + +--------+---+------+---+-------+ +---+ + | | Additional | | | InformationPatient | | | not taking. Reported | | | on 09/07/2018 1:55 | | | PM | +---+ + + + +---+---+---+---+-------+ | liraglutide | Inject 1.8 mg under | | 0 | | | Activ | | (VICTOZA 3-RAPHAEL) 0.6 | the skin (SUBC) once | | | | | e | | mg/0.1 mL (18 mg/3 | daily. | | | | | | | mL) subcutaneous pen | | | | | | | | injector | | | | | | | + + +---+---+---+---+-------+ | ranitidine 150 mg | Take 150 mg by mouth | | 0 | | | Activ | | oral tablet | two times daily. | | | | | e | + + +---+---+---+---+-------+ | | Take 1 tablet by | | 0 | | | Activ | | multivitamin-mineral | mouth once daily. | | | | | e | | s oral tablet | | | | | | | + + +---+---+---+---+-------+ | ibuprofen 200 mg | Take 200 mg by mouth | | 0 | | | Activ | | oral tablet | every six hours as | | | | | e | | | needed. | | | | | | + + +---+---+---+---+-------+ Active Problems No known active problems Family History + + +------+ + | Medical History | Relation | Name | Comments | + + +------+ + | Cancer | Other | | | + + +------+ + | Heart Disease | Other | | | + + +------+ + + +------+--------+ + | Relation | Name | Status | Comments | + +------+--------+ + | Other | | | | + +------+--------+ + Social History + +-------+ +--------+------+ | [...] on file | | + + + Last Filed Vital Signs + + + [...] | | + + + + + Plan of Treatment + + + + + | Health Maintenance | Due Date | Last | Comments | | | | Done | | + + + + + | Preconception/contra | | | | | ception counseling | 3 | | | | (one rolon question) | | | | + + + + + | Pneumococcal | | | | | vaccination (1 of 1 | 9 | | | | - PPSV23) | | | | + + + + + | Influenza (Flu) | | 10/19/20 | | | vaccination (#1) | 0 | 06 | | + + + + + Results Not on filefrom Last 3 Months Insurance +-------+--------+ +--------+ + +------+ | Payer | Benefi | Subscriber | Effect | Phone | Address | Type | | | t Plan | ID | [place]ber | | | | | | / | | Dates | | | | | | Group | | | | | | +-------+--------+ +--------+ + +------+ | [employer] | MOD[employer] | [id number] | Effect | [phone] | [address] | PPO | | | [place] | | [place] | [address] | [address] | | | | [place] | | for | | [place], | | | | | | all | | [place] [address] | | | | | | dates | | | | +-------+--------+ +--------+ + +------+ + +--------+ +--------+ + + | Guarantor Name | Accoun | Relation to | Date | Phone | Billing Address | | | t Type | Patient | of | | | | | | | | | | + +--------+ +--------+ + + | Devora De Leon | Person | Self [birth year] | [address] | | | al/Jagdish | | 1975 | [phone] | [place] | | | [place] | | | [address] (Home) | [address] | + +--------+ +--------+ + + Advance Directives + + + + + | Code Status | Date | Date | Comments | | | Activated | Inactivated | | + + + + + | Full Code | 10/06/2018 | 10/06/2018 | | | | 8:06 AM | 5:39 PM | | + + + + + + + + +---+ | | | | | + + + +---+ | Full Code | 08/25/2018 | 08/25/2018 | | | | 6:25 AM | 4:00 PM | | + + + +---+
--- OUTSIDE RECORDS SUMMARY | ~2020-09-11 | XMS | Encounter Summary ---
Demographics + + + | Address | [address] | | | [place] [address] | + + + | Home Phone | | + + + | Preferred Language | Unknown | + + + | Marital Status | | + + + | Restorationism Affiliation | NON | + + + [...] | | [place] | | [place] [address] | | + + + + + | Nikole Partida | ECON | [address] | | | | | [place] | | | | | [address] | | + + + + + Care Team Providers + +------+ + | Care Glue Bone Drier Name | Role | Phone | + +------+ + | Vinny Lorenzana PA-C | PCP | | + +------+ + Reason for Visit +---------+--------+ + | Reason | Onset | Comments | | | Date | | +---------+--------+ + | Surgery | 10/05/ | Surgery Confirmation 10/06/18 [facility] | | | 2017 | | +---------+--------+ + Encounter Details +--------+ + + + + | Date | Type | Department | Care Team | Description | +--------+ + + + + | 10/05/ | Telephone | [facility] | Madi Kessler MD | Surgery (Surgery | | 2018 | | Sports Medicine & [facility] | Confirmation 10/06/18 | | | | Orthopaedic Surgery | Reginaldo KLEIN, | [facility] ) | | | | [address] [facility] | [place] [address] | | | | | [place] | [phone] | | | | | [address] | | | | | | [phone] | | | +--------+ + + + [...] Notes Telephone Encounter - Lisset Luis - 10/05/2018 3:47 PM PSTConfirmed surgery check in for 7:45am on 10/06/18. Reminded NPO after midnight prior to surgery. documented in this e ncounter Plan of Treatment Not on filedocumented as of this encounter Visit Diagnoses Not on filedocumented in this encounter"
--- OUTSIDE RECORDS SUMMARY | ~2020-09-11 | XMS | Encounter Summary ---
Demographics + + + | Address | [address] | | | [place] [address] | + + + | Home Phone | | + + + | Preferred Language | Unknown | + + + | Marital Status | | + + + | Taoist Affiliation | NON | + + + [...] + + + + + | Tori Brxaton | ECON | [address] | | | [place] | | [place] [address] | | + + + + + | Nikole Partida | ECON | [address] | | | | | [place] | | | | | [address] | | + + + + + Care Team Providers + +------+ + | Care Railroad Surveyor Name | Role | Phone | + +------+ + | Vinny Lorenzana PA-C | PCP | | + +------+ + Encounter Details +--------+ + + + + | Date | Type | Department | Care Team | Description | +--------+ + + + + | 08/25/ | Procedure | [facility] | | | | 2017 | Pass | [facility] [address] | | | | | | [place], [place] | | | | | | [address] | | | +--------+ + + + [...]
--- OUTSIDE RECORDS SUMMARY | ~2020-09-11 | XMS | Encounter Summary ---
Demographics + + + | Address | [address] | | | [place] [address] | + + + | Home Phone [...] | | Radha | | [place] [address] | | + + + + + | Nikole Partida | ECON | [address] | | | | | [place] | | | | | [address] | | + + + + + Care Team Providers + +------+ + | Care Rivet Spinner Name | Role | Phone | + [...] | | | | | thumb | [address] | Drive | | | | | Procedures | | [place], | | | | | REQUEST TO | [place], | [place] [address] | | | | | SURGERY | [place] [address] | Phone: | | | | | ASSOCIATE PRODUCT INTEGRITY ENGINEER | Phone: | [phone] | | | | | [place] | [phone] | Fax: | | | | | FINGER | Fax: | [phone] | | | | | TENDON | [phone] | | | | | | [place] | | | +--------+--------+ + + + + Encounter Details +--------+ + + + + | Date | Type | Department | Care Team | Description | +--------+ + + + + | 08/25/ | Hospital | Same Day Surgery | Ramu Kessler MD | | | 2018 | Encounter | at [facility] | [address] | | | | | [address] [place], | | | | | [place] | [place] [address] | | | | | [address] | [phone] | | | | | [phone] | | | +--------+ + + + [...] Right hand dominant diabetic dominant female from [place] who p resents to the office today [...] with catching. Sy mptoms are aggravated by fur dyer activities, and improve with rest. She is [...] due to her history of diabetes opal drake. This is very reasonable. I have recommended surgical intervention. I have reviewed the surgical procedure and have outlined the post op rehabilitation and a timeline for recovery . She understands the risks and benefits of the procedure and wishes to proceed. She will be schedule for a right trigger thumb release on 08/25/18. Follow up: two weeks post op with Princess Kessler MD [facility] Orthopaedics and Rehabilitation Clinical Strainer Tender Board Certified Orthopaedic Surgeon Fellowship Trained in Sports Medicine and Arthroscopic Surgery Specializing in Knee and Shoulder Surgery [facility] Orthopaedics and Sports Medicine [address] [place] [address] Office: [phone] [email or web address] documented in this enc ounter Procedure Notes Ramu Kessler MD - 08/25/2018 8:21 AM PDTAssociated Order(s): PROCEDURE NOTEORTHOPAEDIC OPERATIVE REPORT Date of Surgery: 08/25/2018 Attending Surgeon: Ramu Kessler M.D. Diesel Locomotive Engineer(s): KATHARINE Partida Preoperative Diagnosis(es): Right trgger thumb [...] and minimal blood loss. Ramu Kessler M.D. [facility] Sports Medicine and Orthopaedic Surgery [address] [place] [address] [email or web address] CuRamu del real MD - 08/25/2018 6:52 AM PDTAssociated Order(s): PROCEDURE NOTEBrief Op Note ORTHOPAEDIC OPERATIVE NOTE IDENTIFICATION: Patient: Devora De Leon Author: RAMU KESSLER MD Date & Time: 08/25/2018, 6:52 AM Pre-Procedure Diagnosis:Right trigger thumb Post-Procedure Diagnosis: Same Anesthesia: General Surgeons: Ramu Kessler MD Diesel Locomotive Engineer: KATHARINE Partida Procedure: Right trigger thumb release Drains: none EBL: minimal Complications: None apparent Dispo: Transferred to the PACU in stable condition. Ramu Kessler M.D. [facility] Sports Medicine and Orthopaedic Surgery [address] [place] [address] [email or web address] documented in this enc ounter Miscellaneous Notes [...] Ramu | | | José Miguel Kessler Diesel Locomotive Engineer(s): KATHARINE Partida Preoperative | | | Diagnosis(es): [...] loss. Ramu Kessler M.D. | | | [facility] Sports Medicine and Orthopaedic Surgery [address] [place] [address] | | | [address] [address] [email or web address] | | + + + 12 LEAD [...] + + + + + + | [facility] | 428 | ms | [facility] | [...] | | Irais De Leon Author: RAMU KESSLRE MD | | | Date & Time: 08/25/2018, 6:52 AM | | | | | | Pre-Procedure Diagnosis:Right trigger thumb Post-Procedure Diagnosis: | | | Same Anesthesia: General Surgeons: Ramu Kessler MD Diesel Locomotive Engineer: | | | KATHARINE Partida Procedure: Right trigger thumb release Drains: | | | none EBL: minimal Complications: None apparent Dispo: | | | Transferred to the PACU in stable condition. Ramu | | | Rachel Kessler M.D. [facility] Sports Medicine and Orthopaedic Surgery [address] | | [address] [facility] [address] [place] [address] | | | [email or web address] | | + + + CAP GLU,POC [...] filedocumented in this encounter Administered Medications + +--------+---------+------+------+------+ | Medication Order | MAR | Action | Dose | Rate | Site | | | Action | Date | | | | + +--------+---------+------+------+------+ + +---+ | lidocaine PF (XYLOCAINE MPF) [...] | intravenous, NEEDED, Starting | | | Thu08/25/18 at 0625, Until Wed | | | [...]
--- OUTSIDE RECORDS SUMMARY | ~2020-09-11 | XMS | Encounter Summary ---
Demographics + + + | Address | [address] | | | [place] [address] | + + + | Home Phone | | + + + | Preferred Language | Unknown | + + + | Marital Status | | + + + | Baptism Affiliation | NON | + + + | Race | White | + + + | Ethnic Group | Not or | + + + Author + + + | Author | [facility] | + + + | Organization | [facility] | + + + | Address | Unknown | + + + | Phone | Unavailable | + + + Support + + + + + | Name | Relationship | Address | Phone | + + + + + | Tori Braxton | ECON | [address] | | | [place]ha | | [place] [address] | | + + + + + | Nikole Partida | ECON | [address] | | | | | [place] | | | | | [address] | | + + + + + Care Team Providers + +------+ + | Care Eating Disorder Psychologist Name | Role | Phone | + [...] | thumb, left | [address] | [address] | | | | | thumb | [address] | Drive | | | | | Procedures | | [place], | | | | | REQUEST TO | [place], | [place] [address] | | | | | SURGERY | [place] [address] | Phone: | | | | | HERBARIUM CURATOR | Phone: | [phone] | | | | | [place] | [phone] | Fax: | | | | | FINGER | Fax: | [phone] | | | | | TENDON | [phone] | | | | | | [place] | | | +--------+--------+ + + + + Encounter Details +--------+ + + + + | Date | Type | Department | Care Team | Description | +--------+ + + + + | 10/06/ | Hospital | Same Day Surgery | Ramu Alegria MD | | | 2018 | Encounter | at [facility] | [address] | | | | | [address] [place], | | | | | [place] | [place] [address] | | | | | [address] | [phone] | | | | | [phone] | | | +--------+ + + + [...] Leon is a 43 y.o. female from [place] who returns to the office today for p ost op. The patient underwent a right thumb trigger finger release on 08/25/18. The patient is doing well following surgery. She reports her pain is well controlled. [facility] for a routine postoperative visit and suture removal. Current pain is 0/10. Denies swelling, numbness, and tingling. She is using no medications for the pain. She does complain of left thumb pain. She reports a nodule over the base of left thumb. 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 [...] post op left hand Princess Kellogg PA-C [facility] Orthopaedics and Rehabilitation Orthopaedic Physician Snack Bar Cashier [facility] Orthopaedics and Sports Medicine [address] [place] [address] Office: [phone] documented in this enc ounter Procedure Notes Ramu Alegria MD - 10/06/2018 9:51 AM PSTAssociated Order(s): PROCEDURE NOTEORTHOPAEDIC OPERATIVE REPORT Date of Surgery: 10/06/2018 Attending Surgeon: Ramu Alegria M.D. Snack Bar Cashier(s): KATHARINE Partida Preoperative Diagnosis(es): Left trgger thumb [...] and minimal blood loss. Ramu Alegria M.D. [facility] Sports Medicine and Orthopaedic Surgery [address] [place] [address] [email or web address] nted in this encounter Plan of [...] Ramu | | | José Miguel Alegria Snack Bar Cashier(s): KATHARINE Partida Preoperative | | | Diagnosis(es): [...] | minimal blood loss. Ramu Alegria M.D. [facility] | | | Medicine and Orthopaedic Surgery [address] [place] [address] | | | [place] [address] [email or web address] | | + + + CAP GLU,POC [...] | intravenous, NEEDED, Starting | | | 10/06/18 at 0806, Until Wed | | | [...] Post | | transdermal, ONCE, 1 dose, Thu | | AM PST | | | Auricula | | 10/06/18 at 0900 | | | | | r | + + + +---------+---+ + + +---+ | | | + +---+ | scopolamine (TRANSDERM-SCOP) 1 | | | mg over 3 days 1 dose, Starting | | | 10/06/18 at 0829, Until Wed | | | 18 at [...]
--- OUTSIDE RECORDS SUMMARY | ~2020-09-11 | XMS | Encounter Summary ---
Demographics + + + | Address | [address] | | | [place] [address] | + + + | Home Phone | | + + + | Preferred Language | Unknown | + + + | Marital Status | | + + + | Gnosticist Affiliation | NON | + + + | Race | White | + + + | Ethnic Group | Not or | + + + Author + + + | Author | [facility] | + + + | Organization | [facility] | + + + | Address | Unknown | + + + | Phone | Unavailable | + + + Support + + + + + | Name | Relationship | Address | Phone | + + + + + | Tori Braxton | ECON | [address] | | | [place] | | [place] [address] | | + + + + + | Nikole Paritda | ECON | [address] | | | | | [place] | | | | | [address] | | + + + + + Care Team Providers + +------+ + | Care Fund Raiser Name | Role | Phone | + +------+ + | Vinny Lorenzana PA-C | PCP | | + +------+ + Reason for Visit +---------+ + | Reason | Comments | +---------+ + | Post Op | s/p left trigger thumb release | +---------+ + Encounter Details +--------+---------+ + + + | Date | Type | Department | Care Team | Description | +--------+---------+ + + + | 10/19/ | Office | [facility] | Princess Kellogg, | Orthopedic aftercare | | 2018 | Visit | Sports Medicine & | [address] | (Primary Dx); | | | | Orthopaedic Surgery | [address] [place], [place] | Trigger thumb of | | | | [address] | [address] | left hand; Trigger | | | | [place], [place] | [phone] | thumb of right hand | | | | [address] | | | | | | [phone] | | | +--------+---------+ + + + [...] Patient Instructions Patient Instructions Kirill Weaver - 10/19/2018 2:15 PM PSTContinue wound care Progress back to activities as tolerated Follow up as needed documented in this encounter Progress Notes Princess Kellogg PA-C - 10/19/2018 2:15 PM PSTChief Complaint: S/P Left trigger thumb release HPI: Devora De Leon is a 43 y.o. female from [place] who returns to the office today for p ost op. The patient underwent a left trigger thumb release on 10/06/18. The patient is doin g well following surgery. Her catching and locking symptoms have resolved. She has returned to all of her regular activities. She reports only some mild incisional soreness. She return s to the office for a routine postoperative visit. Current pain is 0/10 and is characterized as intermittent. Symptoms are improving. The pa in does not wake the patient at night. It is associated with no other symptoms. She is us ing no medications for the pain. Review of Systems: Completed and reviewed with patient per patient intake form. Pertinent positives noted in HPI. See scanned document in media section for reference. No general, systemic or constitu tional issues. Denies chest pain or shortness of breath. Denies fever or chills. No skin a brasions / lesions except as noted. Physical Exam: There were no vitals taken for this visit. Left hand Inspection: Wound clean, dry, intact. No signs of infection. Minimal swelling. Palpation: Mild tenderness over incision site Range of motion: full range of motion Strength: normal Sensation: Intact to light touch Right hand Inspection: Incision healed. No swelling Palpation: No tenderness over incision site, no triggering. Range of motion: full range of motion Strength: normal Sensation: Intact to light touch Assessment: Status post left trigger thumb release 10/06/18 Status post right trigger thumb release 07/2018 Plan: The patient is doing well following surgery. She will begin post op wound care as ins tructed. She may gradually advance her activities. I have reviewed post operative rehabilit [facility] goals and time line for recovery. She is doing well following right trigger thumb release in July. She reports no tende rness or triggering. She will continue with full activity and follow-up as needed. Follow up: reginald Kellogg PA-C [facility] Orthopaedics and Rehabilitation Orthopaedic Physician Framing Consultant [facility] Orthopaedics and Sports Medicine [address] [place] [address] Office: [phone] documented in this e ncounter Plan of Treatment Not on filedocumented as of this encounter Visit Diagnoses + + | Diagnosis | + + | Orthopedic aftercare - Primary Unspecified orthopedic aftercare | + + | Trigger thumb of left hand Trigger finger (acquired) | + + | Trigger thumb of right hand Trigger finger (acquired) | + + documented in this encounter"
--- OUTSIDE RECORDS SUMMARY | ~2020-09-11 | XMS | Encounter Summary ---
Demographics + + + | Address | [address] | | | [place] [address] | + + + | Home Phone | | + + + | Preferred Language | Unknown | + + + | Marital Status | | + + + | Samaritan Affiliation | NON | + + + [...] | | [place]ha | | [place] [address] | | + + + + + | Nikole Partida | ECON | [address] | | | | | [place] | | | | | [address] | | + + + + + Care Team Providers + +------+ + | Care Optical Fabricator Name | Role | Phone | + +------+ + | Vinny Lorenzana PA-C | PCP | | + +------+ + Reason for Visit +---------+--------+ + | Reason | Onset | Comments | | | Date | | +---------+--------+ + | Post Op | 08/26/ | | | | 2017 | | +---------+--------+ + Encounter Details +--------+ + + + + | Date | Type | Department | Care Team | Description | +--------+ + + + + | 08/26/ | Telephone | Orthopedics at | Princess Kellogg, | Post Op | | 2018 | | [facility] [address] | [facility] [address] | | | | [address] | [place], [place] | | | | | [place] | [address] | | | | | [address] | [phone] | | | | | [phone] | | | +--------+ + + + [...] Telephone Encounter - Princess Kellogg PA-C - 08/26/2018 12:20 PM PDTCalled to check in POD 1. NO answer, left message to call if any questions or concerns. documented in this encounter Plan of Treatment Not on filedocumented as of this encounter Visit Diagnoses Not on filedocumented in this encounter"
--- OUTSIDE RECORDS SUMMARY | ~2020-09-11 | XMS | Encounter Summary ---
Demographics + + + | Address | [address] | | | [place] [address] | + + + | Home Phone | | + + + | Preferred Language | Unknown | + + + | Marital Status | | + + + | Voodoo Affiliation | NON | + + + | Race | White | + + + | Ethnic Group | Not or | + + + Author + + + | Author | [facility] | + + + | Organization | [facility] | + + + | Address | Unknown | + + + | Phone | Unavailable | + + + Support + + + + + | Name | Relationship | Address | Phone | + + + + + | Tori Braxton | ECON | [address] | | | [place] | | [place] [address] | | + + + + + | Nikole Partida | ECON | [address] | | | | | [place] | | | | | [address] | | + + + + + Care Team Providers + +------+ + | Care Rug Cleaner Name | Role | Phone | + +------+ + | Vinny Lorenzana PA-C | PCP | | + +------+ + Encounter Details +--------+ + + + + | Date | Type | Department | Care Team | Description | +--------+ + + + + | 08/10/ | Telephone-S | Pre-Operative | | Canceled (Patient | | 2018 | cheduled | Clinic at [facility] | | Request) | | | | Hospital [address] | | | | | | [place], | | | | | | [place] [address] | | | | | | [phone] | | | +--------+ + + + [...]
--- OUTSIDE RECORDS SUMMARY | ~2020-09-11 | XMS | Encounter Summary ---
Demographics + + + | Address | [address] | | | [place] [address] | + + + | Home Phone | | + + + | Preferred Language | Unknown | + + + | Marital Status | | + + + | Nondenominational Affiliation | NON | + + + | Race | White | + + + | Ethnic Group | Not or | + + + Author + + + | Author | [facility] | + + + | Organization | [facility] | + + + | Address | Unknown | + + + | Phone | Unavailable | + + + Support + + + + + | Name | Relationship | Address | Phone | + + + + + | Tori Braxton | ECON | [address] | | | [place] | | [place] [address] | | + + + + + | Nikole Partida | ECON | [address] | | | | | [place] | | | | | [address] | | + + + + + Care Team Providers + +------+ + | Care Head Of Maintenance Name | Role | Phone | + +------+ + | Vinny Lorenzana PA-C | PCP | | + +------+ + Encounter Details +--------+------+ + + + | Date | Type | Department | Care Team | Description | +--------+------+ + + + | 10/06/ | Lab | Laboratory at | | Pre-op exam | | 2018 | | [facility] | | | | | | [place] [address] | | | | | [address] [place] | | | | | | [address] | | | | | | [phone] | | | +--------+------+ + + + [...] | HCG (URINE ONLY) | Routin | 10/06/2018 | Pre-op exam | Results for this | | | e | 7:45 AM | | procedure are in the | | | | PST | | results section. | + +--------+ + + + documented in this encounter Results HCG (URINE ONLY) (10/06/2018 [...] | + + + + + | [place] | [address] | [place] | [phone] | | [facility] | [facility] | [address] | | + + + + + documented in this encounter Visit Diagnoses + + | Diagnosis | + + | Pre-op exam Preoperative examination, unspecified | + + documented in this encounter"
--- OUTSIDE RECORDS SUMMARY | ~2020-09-11 | XMS | Encounter Summary ---
Demographics + + + | Address | [address] | | | [place] [address] | + + + | Home Phone | | + + + | Preferred Language | Unknown | + + + | Marital Status | | + + + | Protestant Affiliation | NON | + + + [...] | | [place] | | [place] [address] | | + + + + + | Nikole Partida | ECON | [address] | | | | | [place] | | | | | [address] | | + + + + + Care Team Providers + +------+ + | Care Emergency Veterinary Technician Name | Role | Phone | + +------+ + | Vinny Lorenzana PA-C | PCP | | + +------+ + Encounter Details +--------+ + + + + | Date | Type | Department | Care Team | Description | +--------+ + + + + | 10/06/ | Anesthesia | [facility] | Haris Villa | | | 2018 | Event | [facility] [address] | MD Marlena Reaves, | | | | | [address] | Kevin Dye RN 0 | | | | | [place], [place] | [address] | | | | | [address] | [place], [place] | | | | | | [address] | | +--------+ + + + + Anesthesia Record + + + + + | Procedure Name | Responsible | Anesthesia Start | Anesthesia Stop Time | | | Anesthesiologist | Time | | + + + + + | LEFT TRIGGER THUMB | Haris Villa, | 10/06/18925 | 10/06/181002 | | RELEASE (Left Hand) | | | | + + [...] | Total | + +---------+ | clindamycin inj | 900 mg | + +---------+ | midazolam IV | 2 mg | + +---------+ | fentaNYL inj | 100 mcg | + +---------+ | propofol IV | 200 mg | + +---------+ | dexamethasone IV | 10 mg | + +---------+ | ondansetron (ZOFRAN ODT) rapid | 4 mg | | dissolve tablet | | + +---------+ | ketorolac inj | 30 mg | + +---------+ | metoclopramide inj | 10 mg | + +---------+ | lactated ringers IV infusion | 400 mL | + +---------+ + + | Name | + + | O2 FR Avance (Total Liters) | + + | Insp Sevo | [...] as of this encounter OR Notes Anesthesia Postprocedure Evaluation - Haris Villa MD - 10/06/2018 10:03 AM PSTForm atting of this note might be different from the original. Devora Braxton Purlear [id number] Allergies Allergen Reactions Cephalexin Hives Penicillin Hives Sulfa (Sulfonamide Antibiotics) Hives Past Surgical History Procedure Laterality Date Bladder defect repair mimi reflux bladder repair at 1 yo Tubal ligation Shoulder surgery Bilateral 2007 rt 2010 lt Foot surgery Right 2007 tendon relase Rotator cuff repair Right Temp: 36.9 C (98.5 F) Heart Rate: 92 Resp: 18 BP: 119/72 SpO2: 98 % Evaluation Patient personally seen and evaluated for recovery from anesthesia care, ROS including Card s, Resp, Neuro, and GI w/o evidence of adverse effects, VS (BP, HR, RR, SpO2, and Temp) and hydration status are stable no PONV Pain controlled No Altered mental status Complications nesthesia Proced ure Notes - Haris Villa MD - 10/06/2018 9:46 AM PSTAssociated Order(s): ANE LMAPro cedure Reason for Intubation: For surgical procedure, Location Performed: OR , Patient was preoxyg enated Mask Ventilation Grade 0 - Ventilation by mask not attempted ETT SGA Atraumatic Placement: Yes LMA Type: Other Other Type: [place] LMA Size: 4LMA Size: 4 Barbara th Sounds Auscultated: Bilateral and equal Narrative Attending physically present Attending: HARIS VILLA documented in thi s encounter Miscellaneous Notes PMC/ANE PreOp Note - Haris Villa MD - 10/01/2018 10:20 AM PDT ROS Pertinent HPI: Pt was here 07/2018 for trigger release. Tolerated well, no problems. Review ed health hx, meds and NPO. Pulmonary: Within Defined Limits except as noted below No dx of sleep apnea Risks factors for sleep apnea: BMI>35 and Neck circumference> 40 cm Pt at low risk of GEORGE Cardiovascular: FOS x 2 w/o CP/SOB. Within Defined Limits except as noted below Functional Capacity: High Vascular: VASCULAR SYMPTOMS hyperlipidemia GI/Hepatic: GERD Control: Well controlled : Pt hx mimi reflux of bladder as /child. Had surgery to fix at 1yo. At 14 yo told o ne kidney 1/2 normal size and other kidney 1/3 normal size, both with scar tissue. Both func tioning in normal range though. Within Defined Limits except as noted below Endo: Pt normally runs 120-125. Last A1C was 6.7. Diabetes: type 2, diet and oral hypogly mics < 150 Neurological: Within Defined limits except as noted below Current Pain Level: Current pain level: 0 MS: Left trigger thumb, rt just repaired 07/2018 Within Defined Limits except as noted belo w Heme/Onc: Within Defined Limits except as noted below Skin: Within Defined Limits except as noted below Obstetrics: documented in thi s encounter Plan of Treatment Not on filedocumented as of this encounter Procedures + +--------+ + + + | Procedure Name | Priori | Date/Time | Associated Diagnosis | Comments | | | ty | | | | + +--------+ + + + | ANE LMA | Routin | 10/06/2018 | | | | | e | 9:46 AM | | | | | | PST | | | + +--------+ + + + +---+--------+ | | | | | Proced | | | ure | | | Note - | | | | | | Bobby | | | on, | | | Juventino | | | s K, | | | MD - | | | | | | 2017 | | | 9:46 | | | AM PST | | | | | | Proced [...] | | | Type: | | | Other | | | Other | | | Type: | | | Suprem | | | e LMA | | | Size: | | | 4LMA | | | Size: | | | 4 | | | Breath | | | | | | Sounds | | | | | | Auscul | | | tated: | | | | | | Bilate | | | ral | | | and | | | equal | | | Narrat | | | iveAtt | | | ending | | | | | | physic | | | ally | | | presen | | | t | | | Attend | | | ing: | | | BOBBY | | | ON, | | | JUVENTINO | | | S K | | | | +---+--------+ documented in this encounter Visit Diagnoses Not on filedocumented in this encounter Administered Medications + +--------+ +--------+------+------+ | Medication Order | MAR | Action | Dose | Rate | Site | | | Action | Date | | | | + +--------+ +--------+------+------+ | clindamycin (CLEOCIN) injection | Given | 10/06/20 | 900 mg | | | | INTRAPROCEDURE PRN, Starting | | 18 9:35 | | | | | 10/06/18 at 0935, Until Wed | | AM PST | | | | | 10/06/18 at 0958 | | | | | | + +--------+ +--------+------+------+ +---+---+ | | | +---+---+ + +-------+ +-------+---+---+ | dexamethasone (DECADRON) | Given | 10/06/20 | 10 mg | | | | injection intravenous, | | 18 9:40 | | | | | INTRAPROCEDURE PRN, Starting Wed | | AM PST | | | | | 10/06/18 at 0940, Until Wed | | | | | | | 10/06/18 at 0958 | | | | | | + +-------+ +-------+---+---+ +---+---+ | | | +---+---+ + +-------+ +---------+---+---+ | fentaNYL (SUBLIMAZE) injection | Given | 10/06/20 | 100 mcg | | | | intravenous, INTRAPROCEDURE PRN, | | 18 9:35 | | | | | Starting Thu10/06/18 at 0935, | | AM PST | | | | | Until Thu10/06/18 at 0958 | | | | | | + +-------+ +---------+---+---+ +---+---+ | | | +---+---+ + +-------+ +-------+---+---+ | ketorolac (TORADOL) injection | Given | 10/06/20 | 30 mg | | | | intravenous, INTRAPROCEDURE PRN, | | 18 9:40 | | | | | Starting Thu10/06/18 at 0940, | | AM PST | | | | | Until Thu10/06/18 at 0958, prn | | | | | | | inflammation | | | | | | + +-------+ +-------+---+---+ +---+---+ | | | +---+---+ + + + +---+---+---+ | lactated Ringers IV | given by | 10/06/20 | | | | | intravenous, INTRAPROCEDURE | | 18 9:51 | | | | | CONTINUOUS PRN, Starting Wed | anesthes | AM PST | | | | | 10/06/18 at 0927, Until Wed | iology | | | | | | 10/06/18 at 0958 | | | | | | + + + +---+---+---+ +---------+ +---+---+---+ | New Bag | 10/06/20 | | | | | | 18 9:27 | | | | | | AM PST | | | | +---------+ +---+---+---+ +---+---+ | | | +---+---+ + +-------+ +-------+---+---+ | metoclopramide HCl (REGLAN) | Given | 10/06/20 | 10 mg | | | | injection intravenous, | | 18 9:40 | | | | | INTRAPROCEDURE PRN, Starting Wed | | AM PST | | | | | 10/06/18 at 0940, Until Wed | | | | | | | 10/06/18 at 0958 | | | | | | + +-------+ +-------+---+---+ +---+---+ | | | +---+---+ + +-------+ +------+---+---+ | midazolam (PF) (VERSED) | Given | 10/06/20 | 2 mg | | | | injection intravenous, | | 18 9:35 | | | | | INTRAPROCEDURE PRN, Starting Wed | | AM PST | | | | | 10/06/18 at 0935, Until Wed | | | | | | | 10/06/18 at 0958 | | | | | | + +-------+ +------+---+---+ +---+---+ | | | +---+---+ + +-------+ +------+---+---+ | ondansetron ODT (ZOFRAN ODT) | Given | 10/06/20 | 4 mg | | | | tablet oral, INTRAPROCEDURE PRN, | | 18 9:40 | | | | | Starting 10/06/18 at 0940, | | AM PST | | | | | Until 10/06/18 at 0958 | | | | | | + +-------+ +------+---+---+ +---+---+ | | | +---+---+ + +-------+ +--------+---+---+ | propofol (DIPRIVAN) injection | Given | 10/06/20 | 200 mg | | | | intravenous, INTRAPROCEDURE PRN, | | 18 9:38 | | | | | Starting Thu10/06/18 at 0938, | | AM PST | | | | | Until Thu10/06/18 at 0958 | | | | | | + +-------+ +--------+---+---+ +---+---+ | | | +---+---+ documented in this encounter"
--- OUTSIDE RECORDS SUMMARY | ~2020-09-11 | XMS | Encounter Summary ---
Demographics + + + | Address | [address] | | | [place] [address] | + + + | Home Phone | | + + + | Preferred Language | Unknown | + + + | Marital Status | | + + + | Zoroastrianism Affiliation | NON | + + + | Race | White | + + + | Ethnic Group | Not or | + + + Author + + + | Author | [facility] | + + + | Organization | [facility] | + + + | Address | Unknown | + + + | Phone | Unavailable | + + + Support + + + + + | Name | Relationship | Address | Phone | + + + + + | Tori Braxton | ECON | [address] | | | [place] | | [place] [address] | | + + + + + | Nikole Partida | ECON | [address] | | | | | [place] | | | | | [address] | | + + + + + Care Team Providers + +------+ + | Care R Programmer Name | Role | Phone | + +------+ + | Vinny Lorenzana PA-C | PCP | | + +------+ + Encounter Details +--------+ + + + + | Date | Type | Department | Care Team | Description | +--------+ + + + + | 05/11/ | Document-Sc | [facility] | Madi Kessler MD | | | 2018 | anned | Sports Medicine & | [facility] | | | | | Orthopaedic Surgery | Reginaldo JAMEYMICHELLE, | | | | | [address] | [place] [address] | | | | | [place], [place] | [phone] | | | | | [address] | | | | | | [phone] | | | +--------+ + + + [...]
--- OUTSIDE RECORDS SUMMARY | ~2020-09-11 | XMS | Encounter Summary ---
Demographics + + + | Address | [address] | | | [place] [address] | + + + | Home Phone | | + + + | Preferred Language | Unknown | + + + | Marital Status | | + + + | Lutheran Affiliation | NON | + + + | Race | White | + + + | Ethnic Group | Not or | + + + Author + + + | Author | [facility] | + + + | Organization | [facility] | + + + | Address | Unknown | + + + | Phone | Unavailable | + + + Support + + + + + | Name | Relationship | Address | Phone | + + + + + | Tori Braxton | ECON | [address] | | | [place] | | [place] [address] | | + + + + + | Nikole Partida | ECON | [address] | | | | | [place] | | | | | [address] | | + + + + + Care Team Providers + +------+ + | Care Oxyacetylene Welder Name | Role | Phone | + +------+ + | Vinny Lorenzana PA-C | PCP | | + +------+ + Encounter Details +--------+ + + + + | Date | Type | Department | Care Team | Description | +--------+ + + + + | 05/10/ | Hospital | [facility] | | | | 2018 | Encounter | Sports Medicine & | | | | | | Orthopaedic Surgery | | | | | | [address] | | | | | | [place] | | | | | | [address] | | | | | | [phone] | | | +--------+ + + + [...] at Time of Discharge + + + +---------+--------+ + | Medication | Sig | Dispensed | Refills | Start | End Date | | | | | | Date | | + + + +---------+--------+ + | atorvastatin 5 mg | Take 5 mg by mouth | | 0 | | | | oral tablet | once daily at | | | | | | | bedtime. | | | | | + + + +---------+--------+ + | metFORMIN 1,000 mg | Take 1,000 mg by | | 0 | | | | oral tablet | mouth two times | | | | | | | daily. | | | | | + + + +---------+--------+ + documented as of this encounter Plan of Treatment Not on filedocumented as of this encounter Visit Diagnoses Not on filedocumented in this encounter"
--- OUTSIDE RECORDS SUMMARY | ~2020-09-11 | XMS | Encounter Summary ---
Demographics + + + | Address | [address] | | | [place] [address] | + + + | Home Phone | | + + + | Preferred Language | Unknown | + + + | Marital Status | | + + + | Sabianist Affiliation | NON | + + + | Race | White | + + + | Ethnic Group | Not or | + + + Author + + + | Author | [facility] | + + + | Organization | [facility] | + + + | Address | Unknown | + + + | Phone | Unavailable | + + + Support + + + + + | Name | Relationship | Address | Phone | + + + + + | Tori Braxton | ECON | [address] | | | [place] | | [place] [address] | | + + + + + | Nikole Partida | ECON | [address] | | | | | [place] | | | | | [address] | | + + + + + Care Team Providers + +------+ + | Care Deportation Officer Name | Role | Phone | + [...] | +--------+ + + + + | 08/13/ | Telephone-S | Pre-Operative | | Pre-op evaluation | | 2018 | cheduled | Clinic at [facility] | | | | | | Hospital [address] | | | | | | [place], | | | | | | [place] [address] | | | | | | [phone] | | | +--------+ + + + + Anesthesia Record + + + + + | Procedure Name | Responsible | Anesthesia Start | Anesthesia Stop Time | | | Anesthesiologist | Time | | + + + + + | RIGHT TRIGGER THUMB | Angela Tamayo MD | 08/25/18 0754 | 08/25/18 [...] | | | 7 | | reviewed, PARNorma held, anesthetic plan made or approved by [...] Height | 175.3 cm (5' 9") | 08/13/2018 11:41 AM | | | | | PDT | | + + + + + | Body Mass Index | - | - | | + + + + + documented in this encounter Patient Instructions Patient Instructions Kevin Beltran RN - 08/13/2018 12:06 PM PDTNothing to eat or dr ink after [...] instructed to do so by yo physician. Patient advised of the above information via phone interview. documented in this encounter Progress Notes Kevin Beltran, LISA - 08/13/2018 12:09 PM PDTPt had surgery at 1 yo for mimi reflux of bladder. Had multiple UTI's before surgery was done. When she had kidney work up done at 14 or 15 yo, was told one kidney 1/2 size it should be and the other 1/3 size it should be and both severely scarred. Pt did have a kidney function work-up done about 1 year ago and told both functioning will in normal range. Want any testing or blood work for kidneys done prior to surgery?? Will get EKG and FSBS DOS for DM II. KEVIN BELTRAN RN BMP DOS, please. ANGELA TAMAYO MD 08/16/2018 1:12 PM documented in this encounter Plan of Treatment Not on filedocumented as of this encounter Results BASIC METABOLIC SET (NA, K, CL, TCO2, BUN, CR, GLU, CA) (08/25/2018 6:00 AM PDT) + +---------+ + + + | Component | Value | Ref Range | Performed | Pathologist | | | | | At | Signature | + +---------+ + + + | GLUCOSE, | 171 (H) | 70 - 105 mg/dL | [facility] | | | PLASMA | | | [...] | | A MEDICAL | | | [place] | | | CENTER | | + [...] + + | [facility] | And | [place], [place] | [phone] | | MEDICAL [facility]ENTER | Street | [address] | | + + + + + HCG (URINE ONLY) (08/25/2018 6:00 AM PDT) [...] + + | [facility] | [address] | [place], [place] | [phone] | | [facility] | [address] | [address] | | + + + + + documented in this encounter Visit Diagnoses + + | Diagnosis | + + | Pre-op exam - Primary Preoperative examination, unspecified | + + documented in this encounter
--- OUTSIDE RECORDS SUMMARY | ~2020-09-11 | XMS | Encounter Summary ---
Demographics + + + | Address | [address] | | | [place] [address] | + + + | Home Phone | | + + + | Preferred Language | Unknown | + + + | Marital Status | | + + + | Uatsdin Affiliation | NON | + + + | Race | White | + + + | Ethnic Group | Not or | + + + Author + + + | Author | [facility] | + + + | Organization | [facility] | + + + | Address | Unknown | + + + | Phone | Unavailable | + + + Support + + + + + | Name | Relationship | Address | Phone | + + + + + | Tori Braxton | ECON | [address] | | | [place] | | [place] [address] | | + + + + + | Nikole Partida | ECON | [address] | | | | | [place] | | | | | [address] | | + + + + + Care Team Providers + +------+ + | Care Allergy And Immunology Specialist Name | Role | Phone | + +------+ + | Vinny Lorenzana PA-C | PCP | | + +------+ + Reason for Visit + + + | Reason | Comments | + + + | Hand Pain | Right thumb catching and locking | + + + Encounter Details +--------+---------+ + + + | Date | Type | Department | Care Team | Description | +--------+---------+ + + + | 08/09/ | Office | [facility] | Ramu Alegria MD | Trigger thumb of | | 2018 | Visit | Sports Medicine & | [address] | right hand (Primary | | | | Orthopaedic Surgery | Reginaldo KLEIN, | Dx) | | | | [address] | [place] [address] | | | | | [place], [place] | [phone] | | | | | [address] | | | | | | [phone] | | | +--------+---------+ + + + [...] Weight | 123.4 kg (272 lb) | 08/09/2018 10:00 AM | | | | | PDT | | + + + + + | Height | 175.3 cm (5' 9") | 08/09/2018 10:00 AM | | | | | PDT | | + + + + + | Body Mass Index | 40.17 | 08/09/2018 10:00 AM | | | | | PDT | | + + + + + documented in this encounter Patient Instructions Patient Instructions Kirill Weaver - 08/09/2018 10:15 AM PDTPlan surgery as scheduled . Please make sure your pre-op interview with the hospital is completed. We will call you the day before surgery to confirm your surgery time. No food or drink after midnight before surgery. Follow up at post-op appointment as scheduled in your surgery packet. documented in this encounter Progress Notes Ramu Alegria MD - 08/09/2018 10:15 AM PDT Chief Complaint: Right hand pain HPI: Devora Douglas is a 43 y.o. Right hand dominant diabetic dominant female from [place] who p resents to the office today [...] with catching. Sy mptoms are aggravated by tightener activities, and improve with rest. She is [...] injections due to her history of diabetes haii tuthierno. This is very reasonable. I have recommended surgical intervention. I have reviewed the surgical procedure and have outlined the post op rehabilitation and a timeline for recovery . She understands the risks and benefits of the procedure and wishes to proceed. She will be schedule for a right trigger thumb release on 08/25/18. Follow up: two weeks post op with Princess Alegria MD [facility] Orthopaedics and Rehabilitation Clinical Medical Researcher Board Certified Orthopaedic Surgeon Fellowship Trained in Sports Medicine and Arthroscopic Surgery Specializing in Knee and Shoulder Surgery [facility] [address] [place] [address] Office: [phone] [email or web address] documented in this enc ounter Plan of Treatment Not on filedocumented as of this encounter Procedures + +--------+ + + + | Procedure Name | Priori | Date/Time | Associated Diagnosis | Comments | | | ty | | | | + +--------+ + + + | X-RAY FINGER 3 VIEWS | Routin | 08/09/2018 | Trigger thumb of | Results for this | | RIGHT | e | 9:51 AM | right hand | procedure are in the | | | | PDT | | results section. | + +--------+ + + + documented in this encounter Results X-RAY FINGER 3 VIEWS RIGHT (08/09/2018 9:51 AM PDT) + + | Specimen | + + | | + + + + + | Narrative | Performed At | + + + | [address] [place] [address] | [facility] | | [place] [address] | DEPARTMENT | | [phone] Name: DEVORA DOUGLAS Phys: | RADIOLOGY | | AIRAMRAMU Ranyd : 1975 Sex: F CSN: | | | [id number] MR# [id number] Exam Date: 08/09/2018 | | | EXAM: X-RAY FINGER 3 VIEWS RIGHT CLINICAL HISTORY: Thumb trigger | | | finger. COMPARISON: None available. TECHNIQUE: Frontal, | | [...] | REPORT SIGNED IN OTHER VENDOR SYSTEM 08/09/2018 Reported by: | | | Christiano Beasley MD Electronically signed by: Christiano Beasley MD | | | Transcribed Date/Time: 08/09/2018 10:09 Clinical Sciences Professor: HARDEEP | | | | | + + + + + | Procedure Note | + + | Interface, Radiology Results - 08/09/2018 10:14 AM PDT [address] | | [place] [address] | | Name: BISHOPDEVORA Phys: RAMU ALEGRIA : 1975 Sex: F | | CSN: [id number] MR# [id number] Exam Date: 08/09/2018 EXAM:X-RAY FINGER 3 VIEWS | | RIGHT CLINICAL HISTORY:Thumb trigger finger. COMPARISON:None available. | | TECHNIQUE:Frontal, lateral, and oblique views. FINDINGS:Bones: No acute fracture or | | destructive osseous lesion. Bonemineralization is normal. Joints: No acute | | dislocation. No significant degenerative changes. Soft tissues: No radiopaque foreign | | body or soft tissuecalcification. IMPRESSION:No acute osseous process. REPORT SIGNED | | IN OTHER VENDOR SYSTEM 08/09/2018 Reported by: Christiano Beasley MD Electronically signed | | by: Christiano Beasley MD Transcribed Date/Time: 08/09/2018 10:09Transcriptionist: FLUENCY | | | |EXAM: | |X-RAY FINGER 3 VIEWS RIGHT | | | |CLINICAL HISTORY: | |Thumb trigger finger. | | | |COMPARISON: | |None available. [...] | REPORT SIGNED IN OTHER VENDOR SYSTEM 08/09/2018 | |Reported by: Christiano Beasley MD | | | |Electronically signed by: Christiano Beasley MD | | | |Transcribed Date/Time: 08/09/2018 10:09 | |Clinical Sciences Professor: FLUENCY | | | | | | [...] + | Trigger thumb of right hand - Primary Trigger finger (acquired) | + + documented in this encounter
[~2020-09-11 11:12] MED LIST changes: +OB COMPLETE WI1 EACH PO; +VICTOZA 2-0.6 MG/0.1 SUB-Q
[2020-09-11] MEDS ORDERED: ZESTRIL5 MG PO (11:28)
[2020-09-11] MEDS ORDERED: NITROGLYCERIN0.4 MG SL (14:53)
[2020-09-11] MEDS ORDERED: ASPIRIN EC325 MG PO (14:53)
--- NOTE | 2020-09-11 20:32 | EKG ---
[facility] [address] [facility] [place], [place] [address] Signed Normal sinus rhythm with sinus arrhythmia Low voltage QRS Cannot rule out Anterior infarct , age undetermined Abnormal ECG No previous ECGs available Confirmed by ADIS TOM DO ([id number]) on 09/11/2020 8:32:06 PM Electronically Signed By: ADIS TOM DO 09/11/202031 PATIENT NAME: MIGUELITO DOUGLAS Marnie Electrocardiogram DATE OF : 71 PHYSICIAN: ADIS TOM DO REPORT #: [id number] REPORT IS CONFIDENTIAL AND NOT TO BE RELEASED WITHOUT AUTHORIZATION
--- NOTE | 2020-09-11 20:33 | EKG ---
[facility] [address] [facility] [place], [place] [address] Signed Normal sinus rhythm Low voltage QRS Cannot rule out Anterior infarct (cited on or before 11-SEP-2020) Abnormal ECG When compared with ECG of 11-SEP-2020 11:18, (Unconfirmed) No significant change was found Confirmed by ADIS TOM DO ([id number]) on 09/11/2020 8:32:51 PM Electronically Signed By: ADIS TOM DO 09/11/202032 PATIENT NAME: MIGUELITO Marnie Electrocardiogram DATE OF : 71 PHYSICIAN: ADIS TOM DO REPORT #: [id number] REPORT IS CONFIDENTIAL AND NOT TO BE RELEASED WITHOUT AUTHORIZATION
== END 2020-09-11 15:13 | disposition home or self-care (01) ==
LOC: ED 11:12
DX: R07.89 Other chest pain (principal); E11.9 Type 2 diabetes mellitus without complications; I10 Essential (primary) hypertension; Z88.0 Allergy status to penicillin; Z88.2 Allergy status to sulfonamides; Z88.1 Allergy status to other antibiotic agents; Z79.899 Other long term (current) drug therapy; Z79.84 Long term (current) use of oral hypoglycemic drugs
CPT/HCPCS: 71045; 80053; 83735; 84484; 85025; 85379; 93005; 93010; 96374; 99285-25; J1885